=== PATIENT | female | born 1970 | race Hispanic/Latino ===

== ENCOUNTER 2022-01-21 02:08 | Emergency (ER) | payer BC ==
[2022-01-21] MEDS ORDERED: METHYLPREDNISOLONE 125 MG INJ ONE (02:39)
[2022-01-21] MEDS ORDERED: DIPHENHYDRAMINE 50 MG/ML VIAL ONE (02:39)
[2022-01-21] MEDS ORDERED: NA CHLORIDE 0.9% 500 ML ONE (02:39)
[2022-01-21 03:00] LABS: Absolute Lymphocytes (CBC) 3.1 K/uL (0.7-4.9); Hematocrit 39.4 % (36.0-45.0); Lymphocytes % 43.5 % (15.3-44.8); RBC Red Blood Cell Count 4.42 M/uL (3.86-4.86)
[2022-01-21 03:12] LABS: Potassium 3.5 mmol/L (3.5-5.1)
[2022-01-21] MEDS ORDERED: ONDANSETRON 4 MG/2 ML VIAL ONE (05:50)
--- NOTE | 2022-01-21 06:00 | ER ---
Nurse's Notes [facility] Name: Debby Ramos Age: 51 yrs Sex: Female : 1970 Arrival Date: 01/21/2022 Time: 02:09 Bed 3 Private MD: Diagnosis: Dyspnea, unspecified Presentation: 01/21 02:09 Chief complaint: Patient states: "I feel like I cannot breath, I feel like my throat is tw5 closing up. I feel like I need to throw up and I have a headache.". Coronavirus screen: Vaccine status: Patient reports being unvaccinated. Ebola Screen: Patient negative for fever greater than or equal to 101.5 degrees Fahrenheit, and additional compatible Ebola Virus Disease symptoms Patient denies exposure to infectious person. Patient denies travel to an Ebola-affected area in the 21 days before illness onset. Initial Sepsis Screen: Does the patient meet any 2 criteria? No. Patient's initial sepsis screen is negative. Does the patient have a suspected source of infection? No. Patient's initial sepsis screen is negative. Risk Assessment: Do you want to hurt yourself or someone else? Patient reports no desire to harm self or others. Onset of symptoms was January 21, 2022 at 01:00. 02:09 Method Of Arrival: EMS: [facility] tw 02:09 Acuity: KIM 2 tw5 Triage Assessment: 02:12 General: Appears uncomfortable, obese, Behavior is calm, cooperative, appropriate for tw5 age. Pain: Complains of pain in "Its mostly in my throat, I just feel uncomfortable like it is closing." Pain currently is 3 out of 10 on a pain scale. Respiratory: Reports shortness of breath at rest Onset: The symptoms/episode began/occurred just prior to arrival, the patient has mild shortness of breath. 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 - Social history:: Smoking status: Patient denies any tobacco usage or history of. - Family history:: not pertinent. - Hospitalizations: : No recent hospitalization is reported. Screenin:11 Abuse screen: Denies threats or abuse. Denies injuries from another. Nutritional as6 screening: No deficits noted. Tuberculosis screening: No symptoms or risk factors identified. Fall Risk None identified. Assessment: 02:29 Cardiovascular: Rhythm is sinus tachycardia. Respiratory: Airway is patent Trachea tw5 midline Respiratory effort is even, unlabored. EENT: Throat patient is able to handle secretions at this time. 05:46 Reassessment: Patient appears in no apparent distress at this time. Patient states as6 symptoms have improved. 06:12 Respiratory: Breath sounds are clear. as6 Vital Signs: 02:09 BP 149 / 73; Pulse 116; Resp 18; Temp 98.4; Pulse Ox 95% on R/A; Weight 117.93 kg; tw5 Height 5 ft. 2 in. (157.48 cm); Pain 3/10; 03:30 BP 130 / 86; Pulse 101; Resp 19 S; Pulse Ox 98% on R/A; as6 04:30 BP 98 / 69; Pulse 94; Resp 20 S; Pulse Ox 95% on R/A; as6 05:41 BP 107 / 84; Pulse 95; Resp 19 S; Pulse Ox 96% on R/A; as6 02:09 Body Mass Index 47.55 (117.93 kg, 157.48 cm) tw5 ED Course: 00:00 Placed in gown. Bed in low position. Call light in reach. Side rails up X2. Client as6 placed on continuous cardiac and pulse oximetry monitoring. NIBP monitoring applied. 02:09 Patient arrived in ED. tw 02:12 Triage completed. 02:12 Arm band placed on right wrist. 02:18 Marcus Colin MD is Attending Physician. rn 02:26 Brody Sánchez RN is Primary Nurse. as6 02:29 Basic Metabolic Panel Sent. 02:29 CBC with Diff Sent. 02: Troponin HS Sent. tw5 02:29 Initial lab(s) drawn, by me, sent to lab. Inserted saline lock: 18 gauge in right tw5 antecubital area, using aseptic technique. Blood collected. 02:41 XRAY Chest (1 view) In Process Unspecified. EDMS 04:17 CT Soft Tissue Neck W/contr In Process Unspecified. EDMS 06:11 No provider procedures requiring assistance completed. IV discontinued, intact, as6 bleeding controlled, No redness/swelling at site. Pressure dressing applied. Administered Medications: 02:38 Drug: NS 0.9% 500 ml Route: IV; Rate: bolus; Site: right antecubital; tw5 06:13 Follow up: Response: No adverse reaction; IV Status: Completed infusion; IV Intake: as6 500ml 02:38 Drug: Benadryl (diphenhydrAMINE) 50 mg Route: IVP; Site: right antecubital; tw5 03:57 Follow up: Response: No adverse reaction tw5 02:38 Drug: SOLU-Medrol (methylPrednisoLONE) 125 mg Route: IVP; Site: right antecubital; tw5 04:00 Follow up: Response: No adverse reaction tw5 05:46 Drug: Zofran (Ondansetron) 4 mg Route: IVP; Site: right antecubital; as6 06:10 Follow up: Response: No adverse reaction as6 Medication: 06:11 VIS not applicable for this client. as6 Intake: 06:13 IV: 500ml; Total: 500ml. as6 Outcome: 06:00 Discharge ordered by . rn 06:12 Discharged to home ambulatory, with family. as6 06:12 Condition: stable 06:12 Discharge instructions given to patient, Instructed on discharge instructions, follow up and referral plans. medication usage, Demonstrated understanding of instructions, follow-up care, medications, Prescriptions given X 2. 06:12 Patient left the ED. as6 Signatures: Dispatcher [employer] EDMS Marcus Colin MD MD rn Wood, Tiffany tw5 Brody Sánchez RN RN as6 Corrections: (The following items were deleted from the chart) 02:44 02:29 PROBNP+C.LAB.BRZ drawn and sent. tw5 EDMS
--- NOTE | 2022-01-21 06:00 | EDPHYS ---
Physician Documentation [facility] Name: Debby Ramos Age: 51 yrs Sex: Female : 1970 Arrival Date: 01/21/2022 Time: 02:09 Bed 3 Private MD: ED Physician Marcus Colin HPI: 01/21 03:05 This 51 yrs old Female presents to ER via EMS with complaints of Shortness Of rn Breath. 03:05 The patient has shortness of breath at rest. rn 03:05 Onset: The symptoms/episode began/occurred 2 hour(s) ago. Duration: The symptoms are rn continuous. The patient's shortness of breath is aggravated by nothing, is alleviated by nothing. Associated signs and symptoms: Pertinent positives: nausea, Pertinent negatives: chest pain, non-productive cough, productive cough, fever, hemoptysis, vomiting. Severity of symptoms: At their worst the symptoms were mild in the emergency department the symptoms are unchanged. The patient has experienced a previous episode. The patient has not recently seen a physician. Pt reports "feels like throat is closing", began about 1 hour prior to arrival, now 2 hours into it. Reports "lots of allergies". No new medication. No fever. Does not feel ill. Denies rash or itching. NO chest pain. NO cough. + subjective swelling of neck/throat.. 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 - Social history:: Smoking status: Patient denies any tobacco usage or history of. - Family history:: not pertinent. - Hospitalizations: : No recent hospitalization is reported. ROS: 03:05 Constitutional: Negative for fever, chills, and weight loss, Eyes: Negative for injury, rn pain, redness, and discharge, ENT: Negative for injury, pain, and discharge, Neck: + subjective swelling of throat Cardiovascular: Negative for chest pain, palpitations, and edema, Respiratory: Negative for cough, wheezing, and pleuritic chest pain, Abdomen/GI: Negative for abdominal pain, vomiting, diarrhea, and constipation, MS/Extremity: Negative for injury and deformity, Skin: Negative for injury, rash, and discoloration, Neuro: Negative for headache, weakness, numbness, tingling, and seizure. Exam: 03:05 Constitutional: This is a well developed, well nourished patient who is awake, alert, rn seems anxious Head/Face: Normocephalic, atraumatic. Eyes: Periorbital areas with no swelling, redness, or edema. ENT: dry MM, no stridor, uvula midline and not swollen, able to swallow spit Neck: Trachea midline, no thyromegaly or masses palpated, and no cervical lymphadenopathy. Supple, full range of motion without nuchal rigidity, or vertebral point tenderness. No Meningismus. Cardiovascular: Tachcyardic, regular Respiratory: No increased work of breathing, no retractions or nasal flaring. Abdomen/GI: Soft, non-tender Skin: Warm, dry MS/ Extremity: Pulses equal, no cyanosis. Neuro: Awake and alert, GCS 15 Vital Signs: 02:09 BP 149 / 73; Pulse 116; Resp 18; Temp 98.4; Pulse Ox 95% on R/A; Weight 117.93 kg; tw5 Height 5 ft. 2 in. (157.48 cm); Pain 3/10; 03:30 BP 130 / 86; Pulse 101; Resp 19 S; Pulse Ox 98% on R/A; as6 04:30 BP 98 / 69; Pulse 94; Resp 20 S; Pulse Ox 95% on R/A; as6 05:41 BP 107 / 84; Pulse 95; Resp 19 S; Pulse Ox 96% on R/A; as6 02:09 Body Mass Index 47.55 (117.93 kg, 157.48 cm) tw5 MDM: 02:18 Patient medically screened. rn 05:41 Differential diagnosis: Anxiety Reaction allergic reaction, anxiety, neck mass, adverse rn reaction. Data reviewed: vital signs, nurses notes, lab test result(s), radiologic studies, CT scan, and as a result, I will discharge patient. Counseling: I had a detailed discussion with the patient and/or guardian regarding: the historical points, exam findings, and any diagnostic results supporting the discharge/admit diagnosis, lab results, radiology results, the need for outpatient follow up, to return to the emergency department if symptoms worsen or persist or if there are any questions or concerns that arise at home. Response to treatment: the patient's symptoms have markedly improved after treatment, and as a result, I will discharge patient. Special discussion: I discussed with the patient/guardian in detail that at this point there is no indication for admission to the hospital. It is understood, however, that if the symptoms persist or worsen the patient needs to return immediately for re-evaluation. Based on the history and exam findings, there is no indication for further emergent testing or inpatient evaluation. I discussed with the patient/guardian the need to see the ENT specialist for further evaluation of the symptoms. I discussed with the patient/guardian the need to see the primary care provider for further evaluation of the symptoms. ED course: CT shows "effacement of airway at level of glottis". Radiology reports could just be during swallow phase. Discussed this with patient, who states has been told in past that has "narrow airway". Also, patient reports symptoms of throat swelling and sob have completely resolved. Reports mild nausea. Discussed findings with her, and she states feels good and would like to go home. Stable vitals. Will dc home with prn steroids for possible allergic reaction and given strict return precautions.. 01/21 02:15 Order name: Basic Metabolic Panel; Complete Time: 03:25 tw5 01/21 02:15 Order name: CBC with Diff; Complete Time: 03:25 tw01/21 02:15 Order name: Troponin HS; Complete Time: 03:25 tw5 01/21 02:15 Order name: XRAY Chest (1 view) tw01/21 02:44 Order name: NT PRO-BNP; Complete Time: 03:25 EDPA 01/21 02:15 Order name: EKG; Complete Time: 02:16 tw01/21 02:15 Order name: Cardiac monitoring; Complete Time: 02:15 tw5 01/21 02:15 Order name: EKG - Nurse/Tech; Complete Time: 02:26 tw5 01/21 03:03 Order name: CT Soft Tissue Neck W/contr rn 01/21 02:15 Order name: IV Saline Lock; Complete Time: :01/21 02:15 Order name: Labs collected and sent; Complete Time: 01/21 02:15 Order name: O2 Per Protocol; Complete Time: 02:01/21 02:15 Order name: O2 Sat Monitoring; Complete Time: : Administered Medications: 02:38 Drug: NS 0.9% 500 ml Route: IV; Rate: bolus; Site: right antecubital; tw5 06:13 Follow up: Response: No adverse reaction; IV Status: Completed infusion; IV Intake: as6 500ml 02:38 Drug: Benadryl (diphenhydrAMINE) 50 mg Route: IVP; Site: right antecubital; tw5 03:57 Follow up: Response: No adverse reaction tw5 02:38 Drug: SOLU-Medrol (methylPrednisoLONE) 125 mg Route: IVP; Site: right antecubital; tw5 04:00 Follow up: Response: No adverse reaction tw5 05:46 Drug: Zofran (Ondansetron) 4 mg Route: IVP; Site: right antecubital; as6 06:10 Follow up: Response: No adverse reaction as6 Disposition Summary: 01/21/22 06:00 Discharge Ordered Location: Home rn Problem: new rn Symptoms: have improved rn Condition: Stable rn Diagnosis - Dyspnea, unspecified rn Followup: rn - With: Private Physician - When: As needed - Reason: Recheck today's complaints, Re-evaluation by your physician Discharge Instructions: - Discharge Summary Sheet rn - Shortness of Breath, Adult rn Forms: - Medication Reconciliation Form rn - Thank You Letter rn - Antibiotic quality rn - Prescription Opioid Use rn - Work release form as6 - Family Work Release as6 Prescriptions: - Prednisone 20 mg Oral Tablet - take 3 tablets by ORAL route once daily for 5 days; 15 tablet; Refills: 0, rn Product Selection Permitted - ondansetron 4 mg Oral tablet,disintegrating - place 1 tablet by TRANSLINGUAL route every 8 hours As needed; 10 tablet; la1 Refills: 0, Product Selection Permitted Signatures: Dispatcher [employer] Marcus Marie MD MD rn Wood, Tiffany tw5 Brody Sánchez RN RN as6 Corrections: (The following items were deleted from the chart) 02:44 02:26 PROBNP+C.RADHA.MARYBETH ordered. EDMS EDMS
[2022-01-21 06:41] VITALS: TEMP 98.4
[2022-01-21 06:45] VITALS: BP 107/84; O2SAT 96
--- NOTE | 2022-01-21 13:36 | RAD REPORT ---
EXAM DESCRIPTION: RAD - Chest Single View - 01/21/2022 2:39 am CLINICAL HISTORY: 51 years, Female, CHEST PAIN COMPARISON: None. FINDINGS: Single view of the chest was obtained portable. No prior films are available for compariso n. The lung volume is slightly decreased. The cardiomediastinal silhouette demonstrate to be unremark able. The heart is not enlarged. The thoracic aorta is unremarkable. Costophrenic angles are sharp. No areas of consolidation or masses are seen. The rest of the soft tissue and bony structures demo nstrate to be unremarkable. IMPRESSION: No acute cardiopulmonary process identified. Electronically signed by: Arthur Faith MD 01/21/2022 3:07 AM CDT Due to temporary technical issues with the PACS/Fluency reporting system, reports are being signed by the in house radiologists without review as a courtesy to insure prompt reporting. The interpreting radiologist is fully responsible for the content of the report.
--- NOTE | 2022-01-21 13:40 | RAD REPORT ---
EXAM DESCRIPTION: CT - Soft Tissue Neck W/Contr - 01/21/2022 4:15 am CLINICAL HISTORY: 51 years Female Sensation of throat closing, difficulty breathing. TECHNIQUE: Axial CT imaging of the soft tissues of the neck were performed following the administrat ion of intravenous contrast. followed by sagittal and coronal reconstructed images. The CT study is p erformed according to ALARA (as low as reasonably achievable) or ALARA/IMAGE GENTLY, with automatic a djustment of mA and/or kV according to patient size. Performed on: 01/21/2022 at 3:59 AM COMPARISON: None. FINDINGS: The visualized portions of the brain and orbits are normal. The oral cavity, oropharynx and nasopharynx are normal. Some portions of the oral cavity and orophary nx are obscured by streak artifact related to the patient's dental hardware. The parapharyngeal fa t planes are preserved. The hypopharynx is unremarkable. The epiglottis and aryepiglottic folds are normal. There is effacement of the airway at the level of the glottis. This could be related to the phase of swallowing. No focal mass lesions are identified. The vallecula and pyriform sinuses are grossly normal. The preepiglottic fat is preserved. The thy roid, cricoid and arytenoid cartilages are normal. The region of the false and true vocal cords is no rmal as is the anterior commissure. The parotid and submandibular glands are grossly within normal limits. No intrinsic mass lesions are seen. . The carotid sheaths are normal bilaterally. The paranasal sinuses and mastoid air cells are clear. There are scattered shotty cervical lymph nodes bilaterally. The thyroid gland is normal in size and configuration. The thoracic inlet is normal. The superior mediastinum and lung apices are normal. No acute osseous abnormalities are identified. No focal soft tissue abnormalities are seen. IMPRESSION: 1. There is effacement of the airway at the level of the glottis. This could be relate d to the phase of swallowing. No focal mass lesions are identified. If clinical symptoms persist, con business process representative evaluation with direct visualization. 2. There are scattered shotty cervical lymph nodes bilaterally. 3. Otherwise, unremarkable CT scan of the soft tissues of the neck. Some portions of the oral cavit y and oropharynx are obscured by streak artifact related to the patient's dental hardware. Electronically signed by: Rebecca Pang DO 01/21/2022 5:31 AM CDT Due to temporary technical issues with the PACS/Fluency reporting system, reports are being signed by the in house radiologists without review as a courtesy to insure prompt reporting. The interpreting radiologist is fully responsible for the content of the report.
--- NOTE | 2022-01-21 14:17 | EKG ---
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
== END 2022-01-21 06:12 | disposition home or self-care (01) ==
LOC: ER 02:08
DX: R06.00 Dyspnea, unspecified (principal); I10 Essential (primary) hypertension; Z88.0 Allergy status to penicillin; Z88.1 Allergy status to other antibiotic agents; Z88.2 Allergy status to sulfonamides; Z88.6 Allergy status to analgesic agent; Z88.8 Allergy status to other drugs, medicaments and biological substances
CPT/HCPCS: 96361; 93005; 85025; 80048; 36415; 84484; 83880; 70491; 71045; 96375; 96374; 99284; Q9967; J1200; J7040; J2930; J2405

== ENCOUNTER 2022-02-19 13:25 | Emergency (ER) | payer BC ==
[2022-02-19 14:06] LABS: Urine Blood Negative (Negative); Urine Glucose Negative (Negative); Urine Protein Trace (Negative); Urine pH 5.5 (5.0-7.0)
[2022-02-19 14:11] LABS: Absolute Lymphocytes (CBC) 1.4 K/uL (0.7-4.9); Hematocrit 41.6 % (36.0-45.0); Lymphocytes % 27.8 % (15.3-44.8); MPV 7.7 fL (7.6-11.3); RBC Red Blood Cell Count 4.73 M/uL (3.86-4.86)
[2022-02-19 14:26] LABS: Albumin 3.6 g/dL (3.4-5.0); Bilirubin Total 0.6 mg/dL (0.2-1.0); Potassium 3.6 mmol/L (3.5-5.1); Protein, Total 8.1 g/dL (6.4-8.2)
--- NOTE | 2022-02-19 14:48 | RAD REPORT ---
EXAM DESCRIPTION: [place] Single View02/19/2022 2:35 pm CLINICAL HISTORY: Cough COMPARISON: January 2022 FINDINGS: The lungs appear clear of acute infiltrate. The heart is normal size IMPRESSION: No acute abnormalities displayed
--- NOTE | 2022-02-19 15:20 | RAD REPORT ---
EXAM DESCRIPTION: US - Abdomen Exam Limited - 02/19/2022 3:12 pm CLINICAL HISTORY: Abdominal pain. COMPARISON: None. FINDINGS: 8 millimeter gallbladder polyp. A gallstone is not seen. No gallbladder wall thickening The biliary tree is normal caliber. IMPRESSION: 8 millimeter gallbladder polyp. If a cholecystectomy is not performed then followup ultr asound in 6 months recommended
[2022-02-19] MEDS ORDERED: ONDANSETRON 4 MG/2 ML VIAL ONE (15:56)
--- NOTE | 2022-02-19 16:09 | ER ---
Nurse's Notes [facility] Name: Debby Ramos Age: 51 yrs Sex: Female : 1970 Arrival Date: 02/19/2022 Time: 13:27 Bed 8 Private MD: Raúl Ibrahim V Diagnosis: Coronavirus infection, unspecified;Weakness Presentation: 02/19 13:31 Chief complaint: Patient states: Dx with Covid on 02/10, continued weakness, decreased jl7 urination, unable to eat due to epigastric pain with food. Coronavirus screen: Vaccine status: Patient reports being unvaccinated. fatigue, fever, Client presents with at least one sign or symptom that may indicate coronavirus-19. Standard/surgical mask placed on the client. Ebola Screen: No symptoms or risks identified at this time. Initial Sepsis Screen: Does the patient meet any 2 criteria? No. Patient's initial sepsis screen is negative. Does the patient have a suspected source of infection? No. Patient's initial sepsis screen is negative. Risk Assessment: Do you want to hurt yourself or someone else? Patient reports no desire to harm self or others. Onset of symptoms was February 10, 2022. 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 - Social history:: Smoking status: Patient denies any tobacco usage or history of. Screenin:12 Abuse screen: Denies threats or abuse. Denies injuries from another. Nutritional eh3 screening: No deficits noted. Tuberculosis screening: No symptoms or risk factors identified. Fall Risk None identified. Assessment: 14:12 General: Appears in no apparent distress. comfortable, Behavior is calm, cooperative, eh3 appropriate for age. Pain: Denies pain. Neuro: Level of Consciousness is awake, alert, obeys commands, Oriented to person, place, time, situation. Neuro: Reports weakness. Cardiovascular: Cardiovascular: Capillary refill < 3 seconds Patient's skin is warm and dry. Respiratory: Airway is patent Respiratory effort is even, labored. Respiratory: Reports shortness of breath. GI: Abdomen is round non-distended. : No signs and/or symptoms were reported regarding the genitourinary system. EENT: No signs and/or symptoms were reported regarding the EENT system. Derm: No signs and/or symptoms reported regarding the dermatologic system. Musculoskeletal: No signs and/or symptoms reported regarding the musculoskeletal system. Vital Signs: 13:31 BP 148 / 78; Pulse 93; Resp 15; Temp 99; Pulse Ox 98% on R/A; Weight 113.4 kg; Height 5 jl7 ft. 1 in. (154.94 cm); Pain 0/10; 13:50 BP 139 / 78 Supine; Pulse 91; Resp 20; Pulse Ox 94% on R/A; eh3 13:52 BP 137 / 84 Sitting; Pulse 94; Resp 21; Pulse Ox 97% on R/A; eh3 13:55 BP 142 / 86 Standing; Pulse 97; Resp 24; Pulse Ox 97% on R/A; eh3 15:17 BP 141 / 83; Pulse 87; Resp 17; Pulse Ox 97% on R/A; eh3 15:54 BP 132 / 84; Pulse 84; Resp 16; Pulse Ox 96% on R/A; eh3 13:31 Body Mass Index 47.24 (113.40 kg, 154.94 cm) jl7 ED Course: 13:27 Patient arrived in ED. as 13:27 Raúl Ibrahim MD is Private Physician. as 13:28 [facility]iann Combs [facility]-C [facility]. kb 13:28 Luisito Travis DO is Attending Physician. kb 13:31 Brandy Wang is Primary Nurse. eh3 13:33 Triage completed. jl7 13:34 Arm band placed on right wrist. jl7 14:12 Patient has correct armband on for positive identification. Bed in low position. Call eh3 light in reach. Side rails up X2. Client placed on continuous cardiac and pulse oximetry monitoring. NIBP monitoring applied. Door closed. Noise minimized. Lights dimmed. 14:12 No provider procedures requiring assistance completed. Inserted saline lock: 20 gauge eh3 in right antecubital area, using aseptic technique. Blood collected. 14:37 Chest Single View XRAY In Process Unspecified. EDMS 15:14 US Abdomen Limited In Process Unspecified. EDMS 16:29 IV discontinued, intact, bleeding controlled, No redness/swelling at site. Pressure eh3 dressing applied. Administered Medications: 15:14 Drug: NS 0.9% 1000 ml Route: IV; Rate: 1000 ml; Site: right antecubital; eh3 15:54 Drug: Zofran (Ondansetron) 4 mg Route: IVP; Site: right antecubital; eh3 Medication: 16:30 VIS not applicable for this client. eh3 Outcome: 16:08 Discharge ordered by . jad 16:29 Discharged to home ambulatory. eh3 16:29 Condition: stable 16:29 Discharge instructions given to patient, Instructed on discharge instructions, follow up and referral plans. Demonstrated understanding of instructions, follow-up care. 16:30 Patient left the ED. eh3 Signatures: Dispatcher [employer] EDMS Diann Combs, MY BROWN-Vidya Weinstein Jahala, NIDIA RN jl7 Brandy Wang eh3
--- NOTE | 2022-02-19 16:10 | EDPHYS ---
Physician Documentation [facility] Name: Debby Ramos Age: 51 yrs Sex: Female : 1970 Arrival Date: 02/19/2022 Time: 13:27 Bed 8 Private MD: Raúl Ibrahim V ED Physician Luisito Travis HPI: 02/19 13:54 This 51 yrs old Female presents to ER via Ambulatory with complaints of kb Weakness. 13:54 The patient presents with generalized weakness. Onset: The symptoms/episode kb began/occurred last week. Context: occurred at home. Modifying factors: The symptoms are alleviated by nothing, the symptoms are aggravated by nothing. Associated signs and symptoms: Pertinent positives: nausea. Severity of symptoms: At their worst the symptoms were moderate in the emergency department the symptoms are unchanged. Patient's baseline: Neuro: alert and fully oriented, Motor: no deficits, Ambulation: walks without assistance, Speech: normal. The patient has not experienced similar symptoms in the past. The patient has not recently seen a physician. Pt states she was diagnosed with covid on 02/10. States she has still been running fever, no appetite since 02/15, decreased urination and feels very weak. Concerned she is dehydrated. Reports abd pain and nausea when she tries to eat. No tenderness upon exam, no pain unless she eats. 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 - Social history:: Smoking status: Patient denies any tobacco usage or history of. ROS: 13:47 Respiratory: Negative for shortness of breath, cough, wheezing, and pleuritic chest kb pain. 13:47 Constitutional: Positive for body aches, chills, fatigue, fever, malaise, poor PO intake. 13:47 Abdomen/GI: Positive for abdominal pain, nausea, anorexia. 13:47 Neuro: Positive for weakness. 13:47 All other systems are negative. Exam: 13:48 Constitutional: This is a well developed, well nourished patient who is awake, alert, kb and in no acute distress. Head/Face: Normocephalic, atraumatic. ENT: Moist Mucous membranes Cardiovascular: Regular rate and rhythm with a normal S1 and S2. No gallops, murmurs, or rubs. No pulse deficits. Respiratory: Respirations even and unlabored. No increased work of breathing. Talking in full sentences Abdomen/GI: Soft, non-tender. No distention Skin: Warm, dry with normal turgor. Normal color. MS/ Extremity: Pulses equal, no cyanosis. Neurovascular intact. Full, normal range of motion. Neuro: Awake and alert, GCS 15, oriented to person, place, time, and situation. Moves all extremities. Normal gait. Psych: Awake, alert, with orientation to person, place and time. Behavior, mood, and affect are within normal limits. Vital Signs: 13:31 BP 148 / 78; Pulse 93; Resp 15; Temp 99; Pulse Ox 98% on R/A; Weight 113.4 kg; Height 5 jl7 ft. 1 in. (154.94 cm); Pain 0/10; 13:50 BP 139 / 78 Supine; Pulse 91; Resp 20; Pulse Ox 94% on R/A; eh3 13:52 BP 137 / 84 Sitting; Pulse 94; Resp 21; Pulse Ox 97% on R/A; eh3 13:55 BP 142 / 86 Standing; Pulse 97; Resp 24; Pulse Ox 97% on R/A; eh3 15:17 BP 141 / 83; Pulse 87; Resp 17; Pulse Ox 97% on R/A; eh3 15:54 BP 132 / 84; Pulse 84; Resp 16; Pulse Ox 96% on R/A; eh3 13:31 Body Mass Index 47.24 (113.40 kg, 154.94 cm) jl7 MDM: 13:28 Patient medically screened. kb 13:46 Data reviewed: vital signs, nurses notes. Data interpreted: Pulse oximetry: on room air kb is 98 %. Interpretation: normal. 16:08 Counseling: I had a detailed discussion with the patient and/or guardian regarding: the kb historical points, exam findings, and any diagnostic results supporting the discharge/admit diagnosis, lab results, radiology results, the need for outpatient follow up, a family practitioner, to return to the emergency department if symptoms worsen or persist or if there are any questions or concerns that arise at home. 02/19 13:32 Order name: CBC with Diff; Complete Time: 14:15 kb 02/19 13:32 Order name: CMP; Complete Time: 14:33 kb 02/19 13:32 Order name: Lipase; Complete Time: 14:33 kb 02/19 14:06 Order name: Urine Dipstick-Ancillary; Complete Time: 14:09 EDMS 02/19 14:15 Order name: Chest Single View XRAY; Complete Time: 14:50 kb 02/19 14:50 Order name: US Abdomen Limited; Complete Time: 15:27 kb 02/19 13:32 Order name: IV Saline Lock; Complete Time: 14:12 kb 02/19 13:32 Order name: Labs collected and sent; Complete Time: 14:12 kb 02/19 13:32 Order name: Urine Dipstick-Ancillary (obtain specimen); Complete Time: 14:12 kb 02/19 13:32 Order name: Orthostatics; Complete Time: 14:12 kb Administered Medications: 15:14 Drug: NS 0.9% 1000 ml Route: IV; Rate: 1000 ml; Site: right antecubital; eh3 15:54 Drug: Zofran (Ondansetron) 4 mg Route: IVP; Site: right antecubital; eh3 Disposition: 18:55 Co-signature as Attending Physician, Luisito Travis DO I was immediately available on-site ms3 in the Emergency Department for consultation in the care of the patient.. Disposition Summary: 02/19/22 16:08 Discharge Ordered Location: Home kb Condition: Stable kb Diagnosis - Coronavirus infection, unspecified kb - Weakness kb Followup: kb - With: Emergency Department - When: As needed - Reason: Worsening of condition Followup: kb - With: Private Physician - When: 2 - 3 days - Reason: Recheck today's complaints, Continuance of care, Re-evaluation by your physician Discharge Instructions: - Discharge Summary Sheet kb - Viral Respiratory Infection, [id number] kb - COVID-19 kb Forms: - Medication Reconciliation Form kb - Thank You Letter kb - Antibiotic Education kb - Prescription Opioid Use kb Signatures: Dispatcher [employer] EDDiann Milton, Monica Fisher, RN RN jl7 Luisito Travis, DO DO ms3 Wang, Brandy eh3 Corrections: (The following items were deleted from the chart) 13:57 13:47 Abdomen/GI: Positive for nausea, anorexia, kb kb 13:57 13:54 Pt states she was diagnosed with covid on 02/10. States she has still been running kb fever, no appetite since 02/15, decreased urination and feels very weak. Concerned she is dehydrated. Reports abd pain and nausea when she tries to eat. . kb
[2022-02-19 16:46] VITALS: TEMP 99
[2022-02-19 17:07] VITALS: BP 132/84; O2SAT 96
== END 2022-02-19 16:30 | disposition home or self-care (01) ==
LOC: ER 13:25
DX: U07.1 COVID-19 (principal); R11.0 Nausea; R50.9 Fever, unspecified; I10 Essential (primary) hypertension; E11.9 Type 2 diabetes mellitus without complications; Z88.0 Allergy status to penicillin; Z88.1 Allergy status to other antibiotic agents; Z88.2 Allergy status to sulfonamides; Z88.8 Allergy status to other drugs, medicaments and biological substances
CPT/HCPCS: 85025; 36415; 81003; 83690; 80053; 71045; 76705; J2405

== ENCOUNTER 2022-05-15 11:27 | Emergency (ER) | payer BC ==
[2022-05-15] MEDS ORDERED: KETOROLAC 30 MG/ML INJ ONE (11:59)
[2022-05-15 12:17] LABS: Absolute Lymphocytes (CBC) 2.2 K/uL (0.7-4.9); Hematocrit 37.4 % (36.0-45.0); Lymphocytes % 33.8 % (15.3-44.8); MCV 88.8 fL (80-100); MPV 7.6 fL (7.6-11.3); RBC Red Blood Cell Count 4.21 M/uL (3.86-4.86)
--- NOTE | 2022-05-15 12:44 | RAD REPORT ---
EXAM DESCRIPTION: CT - Chest For Pe Angio - 05/15/2022 12:35 pm CLINICAL HISTORY: right sided back pain, sob COMPARISON: No comparisons TECHNIQUE: Dynamically enhanced 3 mm thick images of the chest were obtained during administration o f approximately 150mL Isovue 370 IV contrast. Coronal and oblique MIP reconstruction images were gene rated and reviewed. Exam utilizes a protocol to evaluate the pulmonary arterial tree. All CT scans are performed using dose optimization technique as appropriate and may include automated exposure control or mA/KV adjustment according to patient size. FINDINGS: No pulmonary emboli are identified. The aorta as imaged shows no acute or suspicious finding. No pericardial thickening or effusion. No infiltrate or mass in the lung parenchyma. No pleural effusion or pleural thickening. No mediastinal or hilar suspicious masses. No chest wall masses or abnormal axillary lymphadenopathy. Multilevel endplate spurring seen in the thoracic spine. No compression fracture or pathologic bone p rocess. No rib abnormality seen. CT imaging is too inherently limited to allow any accurate assessmen t of the central canal. Imaging in the upper abdomen showed normal celiac, superior mesenteric and re nal arteries. No significant upper most abdominal finding. IMPRESSION: No pulmonary emboli identified. No other significant or suspicious findings.
[2022-05-15 12:50] LABS: Potassium 3.9 mmol/L (3.5-5.1); Troponin High Sensitivity 4.1 pg/mL (<58.9)
--- NOTE | 2022-05-15 13:30 | ER ---
Nurse's Notes [facility] Name: Debby Ramos Age: 52 yrs Sex: Female : 1970 Arrival Date: 05/15/2022 Time: 11:28 Bed 13 Private MD: Raúl Ibrahim V Diagnosis: Strain of muscle and tendon of back wall of thorax Presentation: 05/15 11:42 Chief complaint: Patient states: For the last week I am having this pain in between my bm7 shoulder blades. It huts so bad when I breathe in. I have been taking tylenol and motrin but it hasnt helped. Coronavirus screen: At this time, the client does not indicate any symptoms associated with coronavirus-19. Ebola Screen: No symptoms or risks identified at this time. Initial Sepsis Screen: Does the patient meet any 2 criteria? No. Patient's initial sepsis screen is negative. Does the patient have a suspected source of infection? No. Patient's initial sepsis screen is negative. Risk Assessment: Do you want to hurt yourself or someone else? Patient reports no desire to harm self or others. 11:42 Method Of Arrival: Ambulatory 7 11:42 Acuity: KIM 3 bm7 12:05 Onset of symptoms was May 08, 2022. em6 Triage Assessment: 11:44 General: Appears in no apparent distress. uncomfortable, obese, Behavior is calm, bm7 cooperative, appropriate for age. Pain: Complains of pain in thoracic area. EENT: No deficits noted. No signs and/or symptoms were reported regarding the EENT system. Neuro: No deficits noted. Cardiovascular: No deficits noted. Respiratory: Reports pain with respiration Airway is patent Respiratory effort is even, unlabored, Respiratory pattern is regular, symmetrical, Breath sounds are clear bilaterally. Onset: The symptoms/episode began/occurred gradually, the patient has moderate shortness of breath. GI: No deficits noted. No signs and/or symptoms were reported involving the gastrointestinal system. : No deficits noted. No signs and/or symptoms were reported regarding the genitourinary system. Derm: No deficits noted. No signs and/or symptoms reported regarding the dermatologic system. Musculoskeletal: No deficits noted. No signs and/or symptoms reported regarding the musculoskeletal system. 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 - Social history:: Smoking status: Patient denies any tobacco usage or history of. Screenin:57 Abuse screen: Denies threats or abuse. Nutritional screening: No deficits noted. em6 Tuberculosis screening: No symptoms or risk factors identified. 12:05 Fall Risk IV access (20 points). Total Mohr Fall Scale indicates No Risk (0-24 pts). em6 Assessment: 11:54 General: Appears in no apparent distress. Behavior is cooperative. Pain: Complains of em6 pain in right scapular area Pain does not radiate. Pain currently is 10 out of 10 on a pain scale. Quality of pain is described as sharp, Is continuous. Neuro: Level of Consciousness is awake, alert, obeys commands, Oriented to person, place, time, situation. Cardiovascular: Reports shortness of breath, pain when she takes a deep breath Heart tones present Patient's skin is warm and dry. Rhythm is sinus rhythm. Respiratory: Airway is patent Respiratory effort is even, unlabored, Respiratory pattern is regular, symmetrical, Breath sounds are clear bilaterally. GI: : EENT: Derm: No signs and/or symptoms reported regarding the dermatologic system. Musculoskeletal: Circulation, motion, and sensation intact. Range of motion: intact in all extremities. 12:50 Reassessment: Patient appears in no apparent distress at this time. Patient and/or em6 family updated on plan of care and expected duration. Pain level reassessed. Patient is alert, oriented x 3, equal unlabored respirations, skin warm/dry/pink. 13:54 Reassessment: Patient appears in no apparent distress at this time. Patient and/or em6 family updated on plan of care and expected duration. Pain level reassessed. Patient is alert, oriented x 3, equal unlabored respirations, skin warm/dry/pink. Vital Signs: 11:40 BP 154 / 90; Pulse 75; Resp 18; Temp 97.8(TE); Pulse Ox 98% on R/A; Weight 113.4 kg bm7 (R); Height 5 ft. 2 in. (157.48 cm); Pain 10/10; 12:50 BP 139 / 74; Pulse 69; Resp 19; Pulse Ox 100% on R/A; em6 13:54 BP 133 / 62; Pulse 72; Resp 14; Pulse Ox 100% on R/A; em6 11:40 Body Mass Index 45.73 (113.40 kg, 157.48 cm) bm7 ED Course: 11:28 Patient arrived in ED. as 11:29 Raúl Ibrahim MD is Private Physician. as 11:37 [facility] 11:37 Khalida Abbasi MD is Attending Physician. [facility] 11:43 Triage completed. bm7 11:44 Arm band placed on left wrist. bm7 11:47 Breann Perez, RN is Primary Nurse. em6 12:05 Bed in low position. Call light in reach. Side rails up X2. athletic monitor on. Pulse em6 ox on. NIBP on. Warm blanket given. 12:05 Inserted saline lock: 20 gauge in right antecubital area, using aseptic technique. em6 Blood collected. 12:13 BMP Sent. em6 12:13 Troponin High Sensitivity Sent. em6 12:13 CBC with Diff Sent. em6 13:29 Raúl Ibrahim MD is Referral Physician. jmm 13:55 CT Chest For PE Angio Sent. em6 13:55 No provider procedures requiring assistance completed. IV discontinued, intact, em6 bleeding controlled, No redness/swelling at site. Pressure dressing applied. Administered Medications: 12:05 Drug: Ketorolac 30 mg Route: IVP; Site: right antecubital; em6 13:00 Follow up: Response: No adverse reaction em6 Medication: 13:56 VIS not applicable for this client. em6 Outcome: 13:30 Discharge ordered by . jmsophy 13:56 Discharged to home ambulatory. em6 13:56 Condition: stable 13:56 Discharge instructions given to patient, Instructed on discharge instructions, follow up and referral plans. medication usage, Demonstrated understanding of instructions, follow-up care, medications, Prescriptions given X 2. 13:56 Patient left the ED. em6 Signatures: Sav Newman PA PA jmm Martinez, Amelia as McCarthy, Brittany, RN RN bm7 Breann Perez RN RN em6 Corrections: (The following items were deleted from the chart) 11:43 11:40 Pulse 75bpm; Resp 18bpm; Pulse Ox 98% RA; Temp 97.8F Temporal; 113.4 kg Reported; bm7 Height 5 ft. 2 in.; BMI: 45.7; Pain 10/10; bm7 12:46 11:54 Cardiovascular: Reports shortness of breath, pain when she takes a deep breath em6 Heart tones present Patient's skin is warm and dry. em6
--- NOTE | 2022-05-15 13:30 | EDPHYS ---
Physician Documentation [facility] Name: Debby Ramos Age: 52 yrs Sex: Female : 1970 Arrival Date: 05/15/2022 Time: 11:28 Bed 13 Private MD: Raúl Ibrahim V ED Physician Khalida Abbasi HPI: 05/15 13:04 This 52 yrs old Female presents to ER via Ambulatory with complaints of jmm Shortness Of Breath - lung pain. 13:04 The patient has shortness of breath at rest. Onset: The symptoms/episode began/occurred jmm gradually, 1 week(s) ago. Duration: The symptoms are continuous, and are steadily getting worse. The patient's shortness of breath is aggravated by deep inspiration, movement. Associated signs and symptoms: Pertinent positives: sob. The patient has not experienced similar symptoms in the past. 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 - Social history:: Smoking status: Patient denies any tobacco usage or history of. ROS: 13:04 Respiratory: Positive for shortness of breath. jmm 13:04 Back: Positive for pain with movement. 13:04 All other systems are negative. Exam: 13:04 Constitutional: This is a well developed, well nourished patient who is awake, alert, jmm and in no acute distress. Head/Face: atraumatic. Eyes: EOMI, no conjunctival erythema appreciated ENT: Moist Mucus Membranes Neck: Trachea midline, Supple Chest/axilla: Normal chest wall appearance and motion. Cardiovascular: Regular rate and rhythm. No edema appreciated Respiratory: Normal respirations, no respiratory distress appreciated Abdomen/GI: Non distended 13:04 Skin: General appearance color normal MS/ Extremity: Moves all extremities, no obvious deformities appreciated, no edema noted to the lower extremities Neuro: Awake and alert Psych: Behavior is normal, Mood is normal, Patient is cooperative and pleasant 13:04 Back: pain, that is moderate, of the right scapular area and thoracic area. Vital Signs: 11:40 BP 154 / 90; Pulse 75; Resp 18; Temp 97.8(TE); Pulse Ox 98% on R/A; Weight 113.4 kg bm7 (R); Height 5 ft. 2 in. (157.48 cm); Pain 10/10; 12:50 BP 139 / 74; Pulse 69; Resp 19; Pulse Ox 100% on R/A; em6 13:54 BP 133 / 62; Pulse 72; Resp 14; Pulse Ox 100% on R/A; em6 11:40 Body Mass Index 45.73 (113.40 kg, 157.48 cm) bm7 MDM: 11:47 Patient medically screened. [facility] 13:29 Data reviewed: vital signs, nurses notes. Counseling: I had a detailed discussion with [facility] the patient and/or guardian regarding: the historical points, exam findings, and any diagnostic results supporting the discharge/admit diagnosis, lab results, radiology results, the need for outpatient follow up, to return to the emergency department if symptoms worsen or persist or if there are any questions or concerns that arise at home. 05/15 11:52 Order name: CBC with Diff [facility] 05/15 11:52 Order name: BMP [facility] 05/15 11:52 Order name: Troponin High Sensitivity [facility] 05/15 12:18 Order name: CBC with Automated Diff; Complete Time: 12:29 [facility] 05/15 12:50 Order name: Basic Metabolic Panel; Complete Time: 13:13 [facility] 05/15 12:50 Order name: Troponin High Sensitivity; Complete Time: 13:13 [facility] 05/15 11:47 Order name: Saline Lock; Complete Time: 12:13 [facility] 05/15 11:52 Order name: CT Chest For PE Angio [facility] 05/15 12:45 Order name: CT; Complete Time: 13:13 EDMS Administered Medications: 12:05 Drug: Ketorolac 30 mg Route: IVP; Site: right antecubital; em6 13:00 Follow up: Response: No adverse reaction em6 Disposition: 17:51 STAFF ATTESTATION STATEMENT: I was immediately available onsite in the emergency sd2 department for consultation in the care of this patient. I did not see or examine this patient. Khalida Abbasi MD. Disposition Summary: 05/15/22 13:30 Discharge Ordered Location: Home jm Condition: Stable jmm Diagnosis - Strain of muscle and tendon of back wall of thorax jm Followup: jmm - With: Raúl Ibrahim MD - When: 2 - 3 days - Reason: Recheck today's complaints, Continuance of care, Re-evaluation by your physician Discharge Instructions: - Discharge Summary Sheet [facility] - Thoracic Strain [facility] Forms: - Medication Reconciliation Form [facility] - Thank You Letter [facility] - Antibiotic Education [facility] - Prescription Opioid Use [facility] Prescriptions: - Diclofenac Sodium 75 mg Oral Tablet Sustained Release - take 1 tablet by ORAL route 2 times per day; 30 tablet; Refills: 0, Product [facility] Selection Permitted - orphenadrine citrate 100 mg Oral Tablet Sustained Release - take 1 tablet by ORAL route 2 times per day As needed; 20 tablet; Refills: 0, [facility] Product Selection Permitted Signatures: Dispatcher [employer] EDSav De Jesus PA PA jmm McCarthy, Brittany, RN RN 7 Khalida Abbasi MD MD sd2 Breann Perez RN RN em6
[2022-05-15 16:19] VITALS: TEMP 97.8
[2022-05-15 16:20] VITALS: O2SAT 100
[2022-05-15 16:21] VITALS: BP 133/62
== END 2022-05-15 13:56 | disposition home or self-care (01) ==
LOC: ER 11:27
DX: S29.012A Strain of muscle and tendon of back wall of thorax, initial encounter (principal); E11.9 Type 2 diabetes mellitus without complications; I10 Essential (primary) hypertension; Z88.0 Allergy status to penicillin; Z88.1 Allergy status to other antibiotic agents; Z88.2 Allergy status to sulfonamides; Z88.8 Allergy status to other drugs, medicaments and biological substances
CPT/HCPCS: 85025; 80048; 36415; 82565; 84484; 71275; 96374; 99284; Q9967

== ENCOUNTER 2022-05-31 15:46 | Emergency (ER) | payer BC ==
--- NOTE | 2022-05-31 16:29 | RAD REPORT ---
EXAM DESCRIPTION: RAD - Chest Single View - 05/31/2022 4:23 pm CLINICAL HISTORY: DYSPNEA Chest pain. COMPARISON: Chest Single View dated 02/19/2022; Chest Single View dated 01/21/2022; CHEST SINGLE VIEW da zoya 10/13/2013; CHEST SINGLE VIEW dated 08/16/2008 FINDINGS: Portable technique limits examination quality. The lungs are grossly clear. The heart is normal in size. No displaced fractures. IMPRESSION: No acute intrathoracic process suspected.
[2022-05-31] MEDS ORDERED: FAMOTIDINE 20 MG/2 ML VIAL IV ONE (17:46)
[2022-05-31] MEDS ORDERED: METHYLPREDNISOLONE 125 MG INJ ONE (17:46)
[2022-05-31] MEDS ORDERED: ONDANSETRON 4 MG/2 ML VIAL ONE (17:47)
[2022-05-31 17:54] LABS: Absolute Lymphocytes (CBC) 1.6 K/uL (0.7-4.9); Hematocrit 38.7 % (36.0-45.0); Lymphocytes % 15.7 % (15.3-44.8); MCV 89.4 fL (80-100); MPV 7.7 fL (7.6-11.3); RBC Red Blood Cell Count 4.33 M/uL (3.86-4.86)
[2022-05-31 18:13] LABS: Potassium 3.9 mmol/L (3.5-5.1)
--- NOTE | 2022-05-31 18:41 | EDPHYS ---
Physician Documentation [facility] Name: Debby Ramos Age: 52 yrs Sex: Female : 1970 Arrival Date: 05/31/2022 Time: 15:48 Bed 28 Private MD: ED Physician Khalida Abbasi HPI: 05/31 15:53 This 52 yrs old Female presents to ER via Unassigned with complaints of kb shortness of breath. 15:53 The patient has shortness of breath at rest. Onset: The symptoms/episode began/occurred kb just prior to arrival. Duration: The symptoms are continuous. The patient's shortness of breath has no apparent modifying factors. Associated signs and symptoms: Pertinent positives: dizziness, Pertinent negatives: chest pain, non-productive cough, productive cough, diaphoresis, fever, hemoptysis, loss of consciousness, nausea, numbness in extremities, visual changes, vomiting. Severity of symptoms: At their worst the symptoms were moderate in the emergency department the symptoms are unchanged. The patient has not experienced similar symptoms in the past. The patient has not recently seen a physician. Pt reports shortness of breath and dizziness that started after taking codeine. . 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 - Social history:: Smoking status: Patient denies any tobacco usage or history of. ROS: 15:52 Constitutional: Negative for fever, chills, and weight loss. kb 15:52 Respiratory: Positive for shortness of breath. 15:52 Neuro: Positive for dizziness. 15:52 All other systems are negative. Exam: 15:52 Constitutional: This is a well developed, well nourished patient who is awake, alert, kb and in no acute distress. Head/Face: Normocephalic, atraumatic. ENT: Moist Mucous membranes Cardiovascular: Regular rate and rhythm with a normal S1 and S2. No gallops, murmurs, or rubs. No pulse deficits. Respiratory: Respirations even and unlabored. No increased work of breathing. Talking in full sentences Abdomen/GI: Soft, non-tender. No distention Skin: Warm, dry with normal turgor. Normal color. MS/ Extremity: Pulses equal, no cyanosis. Neurovascular intact. Full, normal range of motion. Neuro: Awake and alert, GCS 15, oriented to person, place, time, and situation. Moves all extremities. Normal gait. 22:04 ECG was reviewed by the Attending Physician. Vital Signs: 16:39 BP 141 / 82; Pulse 84; Resp 18; Temp 98.1(O); Pulse Ox 98% on R/A; Weight 113.4 kg; vg1 Height 5 ft. 2 in. (157.48 cm); Pain 7/10; 17:15 BP 145 / 98; Pulse 102; Resp 22; Pulse Ox 99% on R/A; ld1 17:45 BP 137 / 80; Pulse 100; Resp 24; Pulse Ox 99% on R/A; ld1 19:01 BP 136 / 84; Pulse 95; Resp 22; Pulse Ox 100% on R/A; em6 16:39 Body Mass Index 45.73 (113.40 kg, 157.48 cm) vg1 MDM: 15:49 Patient medically screened. kb 15:53 Data reviewed: vital signs, nurses notes. Data interpreted: Pulse oximetry: on room air kb is 95 %. Interpretation: normal. 18:40 Counseling: I had a detailed discussion with the patient and/or guardian regarding: the kb historical points, exam findings, and any diagnostic results supporting the discharge/admit diagnosis, lab results, radiology results, the need for outpatient follow up, a family practitioner, to return to the emergency department if symptoms worsen or persist or if there are any questions or concerns that arise at home. ED course: Pt requests prescription for Toradol because that helped in the past.. 05/31 15:50 Order name: Basic Metabolic Panel; Complete Time: 18:35 kb 05/31 15:50 Order name: CBC with Diff; Complete Time: 18:35 kb 05/31 15:50 Order name: D-Dimer; Complete Time: 18:35 kb 05/31 15:50 Order name: NT PRO-BNP; Complete Time: 18:35 kb 05/31 15:50 Order name: Troponin HS; Complete Time: 18:35 kb 05/31 15:50 Order name: XRAY Chest (1 view); Complete Time: 16:33 kb 05/31 15:50 Order name: EKG; Complete Time: 15:50 kb 05/31 15:50 Order name: Cardiac monitoring; Complete Time: 17:40 kb 05/31 15:50 Order name: EKG - Nurse/Tech; Complete Time: 17:40 kb 05/31 15:50 Order name: IV Saline Lock; Complete Time: 17:40 kb 05/31 15:50 Order name: Labs collected and sent; Complete Time: 17:40 kb 05/31 15:50 Order name: O2 Per Protocol; Complete Time: 17:40 kb 05/31 15:50 Order name: O2 Sat Monitoring; Complete Time: 17:40 kb EC:04 Rate is 95 beats/min. Rhythm is regular. QRS [place] is Normal. [place] interval is normal at kb 172 msec. QRS interval is normal at 84 msec. QT interval is normal at 467 msec. Administered Medications: 17:56 Drug: Pepcid (famotidine) 20 mg Route: IVP; Site: right antecubital; em6 18:30 Follow up: Response: No adverse reaction em6 17:56 Drug: SOLU-Medrol (methylPrednisoLONE) 125 mg Route: IVP; Site: right antecubital; em6 18:30 Follow up: Response: No adverse reaction em6 17:56 Drug: Zofran (Ondansetron) 4 mg Route: IVP; Site: right antecubital; em6 18:30 Follow up: Response: No adverse reaction em6 19:00 Drug: Ketorolac 15 mg Route: IVP; Site: right antecubital; em6 19:21 Follow up: Response: No adverse reaction em6 Disposition Summary: 05/31/22 18:41 Discharge Ordered Location: Home kb Condition: Stable kb Diagnosis - Dyspnea - medication reaction kb Followup: kb - With: Emergency Department - When: As needed - Reason: Worsening of condition Followup: kb - With: Private Physician - When: 2 - 3 days - Reason: Recheck today's complaints, Continuance of care, Re-evaluation by your physician Discharge Instructions: - Discharge Summary Sheet kb - Drug Allergy, [id number] kb Forms: - Medication Reconciliation Form kb - Thank You Letter kb - Antibiotic Education kb - Prescription Opioid Use kb Prescriptions: - ketorolac 10 mg Oral tablet - take 1 tablet by ORAL route every 12 hours As needed; 10 tablet; Refills: 0, kb Product Selection Permitted Addendum: 06/03/2022 03:40 STAFF ATTESTATION STATEMENT: I was immediately available onsite in the emergency s d2 department for consultation in the care of this patient. I did not see or examine this patient. Khalida Abbasi MD. Signatures: Dispatcher [employer] EDDiann Milton, KEVIN-C KEVIN-Bozena Marin, RN RN vg1 Khalida Abbasi MD MD sd2 Breann Perez RN RN em6
--- NOTE | 2022-05-31 18:41 | ER ---
Nurse's Notes [facility] Name: Debby Ramos Age: 52 yrs Sex: Female : 1970 Arrival Date: 05/31/2022 Time: 15:48 Bed 28 Private MD: Diagnosis: Dyspnea-medication reaction Presentation: 05/31 16:39 Chief complaint: Patient states: took Tylenol #3 at 1300 then noticed SOB, chest vg1 tightness and nausea. Coronavirus screen: Vaccine status: Patient reports being unvaccinated. Client denies travel out of the [place] in the last 14 days. Ebola Screen: Patient negative for fever greater than or equal to 101.5 degrees Fahrenheit, and additional compatible Ebola Virus Disease symptoms Patient denies exposure to infectious person. Initial Sepsis Screen: Does the patient meet any 2 criteria? No. Patient's initial sepsis screen is negative. Does the patient have a suspected source of infection? No. Patient's initial sepsis screen is negative. Risk Assessment: Do you want to hurt yourself or someone else? Patient reports no desire to harm self or others. Onset of symptoms was May 31, 2022. 16:39 Method Of Arrival: Wheelchair vg1 16:39 Acuity: KIM 3 vg1 Triage Assessment: 16:42 General: Appears uncomfortable, Behavior is calm, cooperative. Pain: Complains of pain vg1 in chest and throat. Respiratory: Reports shortness of breath at rest on exertion Onset: The symptoms/episode began/occurred today, the patient has mild shortness of breath. 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 - Social history:: Smoking status: Patient denies any tobacco usage or history of. Screenin:25 Abuse screen: Denies threats or abuse. Nutritional screening: No deficits noted. em6 Tuberculosis screening: No symptoms or risk factors identified. Fall Risk IV access (20 points). Total Mohr Fall Scale indicates No Risk (0-24 pts). Assessment: 17:25 General: Appears uncomfortable, Behavior is cooperative. Pain: Denies pain. Neuro: em6 Level of Consciousness is awake, alert, obeys commands, Oriented to person, place, time, situation. Cardiovascular: Heart tones present Patient's skin is warm and dry. Rhythm is sinus rhythm. Respiratory: Reports shortness of breath Airway is patent Respiratory effort is even, unlabored, Breath sounds are clear bilaterally. GI: No signs and/or symptoms were reported involving the gastrointestinal system. : No signs and/or symptoms were reported regarding the genitourinary system. EENT: No signs and/or symptoms were reported regarding the EENT system. Derm: No signs and/or symptoms reported regarding the dermatologic system. Musculoskeletal: Circulation, motion, and sensation intact. 18:30 Reassessment: Patient and/or family updated on plan of care and expected duration. Pain em6 level reassessed. Patient is alert, oriented x 3, equal unlabored respirations, skin warm/dry/pink. Vital Signs: 16:39 BP 141 / 82; Pulse 84; Resp 18; Temp 98.1(O); Pulse Ox 98% on R/A; Weight 113.4 kg; vg1 Height 5 ft. 2 in. (157.48 cm); Pain 7/10; 17:15 BP 145 / 98; Pulse 102; Resp 22; Pulse Ox 99% on R/A; ld1 17:45 BP 137 / 80; Pulse 100; Resp 24; Pulse Ox 99% on R/A; ld1 19:01 BP 136 / 84; Pulse 95; Resp 22; Pulse Ox 100% on R/A; em6 16:39 Body Mass Index 45.73 (113.40 kg, 157.48 cm) vg1 ED Course: 15:48 Patient arrived in ED. iw 15:49 [facility] kb 15:49 Khalida Abbasi MD is Attending Physician. kb 16:25 XRAY Chest (1 view) In Process Unspecified. EDMS 16:42 Triage completed. vg1 16:42 Arm band placed on. vg1 16:56 Breann Perez, RN is Primary Nurse. em6 17:20 Placed in gown. Bed in low position. Call light in reach. Side rails up X2. Cardiac em6 monitor on. Pulse ox on. NIBP on. Warm blanket given. 17:25 Inserted saline lock: 20 gauge in right antecubital area, using aseptic technique. em6 Blood collected. 19:22 No provider procedures requiring assistance completed. IV discontinued, intact, em6 bleeding controlled, No redness/swelling at site. Pressure dressing applied. Administered Medications: 17:56 Drug: Pepcid (famotidine) 20 mg Route: IVP; Site: right antecubital; em6 18:30 Follow up: Response: No adverse reaction em6 17:56 Drug: SOLU-Medrol (methylPrednisoLONE) 125 mg Route: IVP; Site: right antecubital; em6 18:30 Follow up: Response: No adverse reaction em6 17:56 Drug: Zofran (Ondansetron) 4 mg Route: IVP; Site: right antecubital; em6 18:30 Follow up: Response: No adverse reaction em6 19:00 Drug: Ketorolac 15 mg Route: IVP; Site: right antecubital; em6 19:21 Follow up: Response: No adverse reaction em6 Medication: 19:22 VIS not applicable for this client. em6 Outcome: 18:41 Discharge ordered by . kb 19:22 Discharged to home via wheelchair. em6 19:22 Condition: stable 19:22 Discharge instructions given to patient, significant other, Instructed on discharge instructions, follow up and referral plans. medication usage, Demonstrated understanding of instructions, follow-up care, medications, Prescriptions given X 1. 19:22 Patient left the ED. em6 Signatures: Dispatcher [employer] EDMS Diann Combs, MEDICAL SCIENTIFIC OFFICER-C MEDICAL SCIENTIFIC OFFICER-CkPaulette Castrejon, RN Bozena Morris RN RN vg1 Joie Carnes RN RN ld1 Breann Perez, RN RN em6 Corrections: (The following items were deleted from the chart) 17:42 17:25 Respiratory: Airway is patent Respiratory effort is even, unlabored, Breath em6 sounds are clear bilaterally. em6 17:42 17:25 Cardiovascular: Rhythm is sinus rhythm em6 em6 18:01 18:00 BP 137 / 80; Pulse 100bpm; Resp 24bpm; Pulse Ox 99% RA; ld1 ld1 19:10 19:07 Ketorolac 15 mg IVP in right antecubital em6 em6
[2022-05-31] MEDS ORDERED: KETOROLAC 30 MG/ML INJ ONE (19:04)
[2022-05-31 19:58] VITALS: TEMP 98.1
[2022-05-31 20:01] VITALS: BP 136/84; O2SAT 100
--- NOTE | 2022-06-01 14:02 | EKG ---
Test Date: 2022-06-01 Test Time: 01:17:48 Wind Turbine Performance Engineer: JEFFRY MEASUREMENT RESULTS: Intervals: Rate: 104 MO: 164 QRSD: 74 QT: 336 QTc: 441 [place]: P: 54 MO: 164 QRS: 8 T: 2 INTERPRETIVE STATEMENTS: Sinus tachycardia Cannot rule out Anterior infarct, age undetermined Abnormal ECG Compared to ECG 01/21/2022 02:20:53 ST (T wave) deviation no longer present Possible ischemia no longer present Myocardial infarct finding still present Electronically Signed On 06-01-22 14:00:32 CDT by Arnulfo Quan
== END 2022-05-31 19:22 | disposition home or self-care (01) ==
LOC: ER 15:46
DX: R06.00 Dyspnea, unspecified (principal); T50.995A Adverse effect of other drugs, medicaments and biological substances, initial encounter; Y92.9 Unspecified place or not applicable; Z88.0 Allergy status to penicillin; Z88.8 Allergy status to other drugs, medicaments and biological substances; Z88.2 Allergy status to sulfonamides; I10 Essential (primary) hypertension; E11.9 Type 2 diabetes mellitus without complications
CPT/HCPCS: 93005; 85025; 80048; 36415; 85379; 84484; 83880; 71045; 96375; 96374; 99284; J2930; J2405

== ENCOUNTER 2022-06-01 01:06 | Emergency (ER) | payer BC ==
[2022-06-01] MEDS ORDERED: MAGNES/ALUMIN/SIMET 30ML UCUP ONE (01:26)
[2022-06-01] MEDS ORDERED: LORAZEPAM 0.5 MG TABLET ONE (01:26)
--- NOTE | 2022-06-01 01:42 | ER ---
Nurse's Notes [facility] Name: Debby Ramos Age: 52 yrs Sex: Female : 1970 Arrival Date: 06/01/2022 Time: 01:13 Bed 19 Private MD: Diagnosis: Dyspnea, unspecified Presentation: 06/01 01:18 Chief complaint: EMS states: EMT states, " c/o SOB and chest pain, she was here earlier aa9 for the same thing. she was discharged at around 7 pm. she also c/o numbness around the head. ". Ebola Screen: No symptoms or risks identified at this time. Initial Sepsis Screen: Does the patient meet any 2 criteria? No. Patient's initial sepsis screen is negative. Does the patient have a suspected source of infection? No. Patient's initial sepsis screen is negative. Risk Assessment: Do you want to hurt yourself or someone else? Patient reports no desire to harm self or others. Onset of symptoms was June 01, 2022. 01:18 Method Of Arrival: EMS: [facility] aa9 01:18 Acuity: KIM 3 aa9 01:23 Coronavirus screen: Vaccine status: Patient reports being unvaccinated. aa9 Triage Assessment: 01:20 General: Appears comfortable, obese, Behavior is calm, cooperative, appropriate for aa9 age. Pain: Complains of pain in chest Pain does not radiate. Also complains of shortness of breath. Neuro: Level of Consciousness is awake, alert, obeys commands, Oriented to person, place, time, situation, Reports numbness in head. Cardiovascular: Patient's skin is warm and dry. Respiratory: Airway is patent Respiratory effort is even, unlabored. Historical: - Allergies: 01:22 Clonidine; aa9 01:22 Levofloxacin; aa9 01:22 Nitroglycerin; aa9 01:22 PENICILLINS; aa9 01:22 Sulfa (Sulfonamide Antibiotics); aa9 - Home Meds: 01:22 Benicar 40 mg Oral tab 1 tab once daily [Active]; glimepiride 2 mg Oral tab 1 tab once aa9 daily [Active]; Norvasc 10 mg Oral tab 1 tab once daily [Active]; - PMHx: 01:22 Hypertension; diabetes mellitus; aa9 - Immunization history:: Client reports having NOT received the Covid vaccine. - Social history:: Smoking status: Patient denies any tobacco usage or history of. Screenin:21 Abuse screen: Denies threats or abuse. Denies injuries from another. Nutritional aa9 screening: No deficits noted. Tuberculosis screening: No symptoms or risk factors identified. Fall Risk None identified. Assessment: 02:04 General: Appears comfortable, obese. Pain: Complains of pain in throat. Neuro: Level of aa9 Consciousness is awake, alert, obeys commands, Oriented to person, place, time, situation. Cardiovascular: Patient's skin is warm and dry. Respiratory: Airway is patent Respiratory effort is even, unlabored. Vital Signs: 01:18 BP 131 / 77; Pulse 102; Resp 16 S; Temp 98.6(O); Pulse Ox 97% on R/A; aa9 01:30 BP 126 / 74; Pulse 104; Resp 17 S; Pulse Ox 96% on R/A; aa9 01:45 BP 134 / 74; Pulse 104; Resp 17 S; Pulse Ox 100% on R/A; aa9 ED Course: 01:13 Patient arrived in ED. kb 01:13 [facility]-C [facility] kb 01:13 Marcus Colin MD is Attending Physician. kb 01:17 Zoraida Milligan, RN is Primary Nurse. aa9 01:20 Triage completed. aa9 01:21 Arm band placed on. aa9 01:22 Patient has correct armband on for positive identification. Placed in gown. Bed in low aa9 position. Side rails up X2. Warm blanket given. 02:03 No provider procedures requiring assistance completed. Patient did not have IV access aa9 during this emergency room visit. Administered Medications: 01:38 Drug: Ativan (LORazepam) 0.5 mg Route: PO; aa9 01:38 Drug: Maalox (aluminum hydroxide, magnesium hydroxide, simethicone) Suspension (200 aa9 mg-200 mg-20 mg/5 mL) 30 ml Route: PO; Medication: 02:05 VIS not applicable for this client. aa9 Outcome: 01:41 Discharge ordered by . kb 02:05 Discharged to home via wheelchair, with family. aa9 02:05 Condition: stable 02:05 Discharge instructions given to patient, friend, Instructed on discharge instructions, follow up and referral plans. Demonstrated understanding of instructions, follow-up care. 02:05 Patient left the ED. aa9 Signatures: Diann Combs FNP-C FNP-Ckb Avalos, Aylin RN RN aa9 Corrections: (The following items were deleted from the chart) 01:23 01:18 Coronavirus screen: Vaccine status: Patient reports receiving the 2nd dose of the aa9 covid vaccine. aa9
--- NOTE | 2022-06-01 01:42 | EDPHYS ---
Physician Documentation [facility] Name: Debby Ramos Age: 52 yrs Sex: Female : 1970 Arrival Date: 06/01/2022 Time: 01:13 Bed 19 Private MD: ED Physician Marcus Colin HPI: 06/01 01:14 This 52 yrs old Female presents to ER via Unassigned with complaints of kb shortness of breath. 01:14 The patient has shortness of breath at rest. Onset: The symptoms/episode began/occurred kb just prior to arrival. Duration: The symptoms are continuous. The patient's shortness of breath has no apparent modifying factors. Associated signs and symptoms: Pertinent positives: palpitations. Severity of symptoms: At their worst the symptoms were moderate in the emergency department the symptoms are unchanged. The patient has not experienced similar symptoms in the past. The patient has not recently seen a physician. 01:38 Patient states she was lying down started feeling shortness of breath again with kb palpitations. States she felt some tingling all over her head. Patient seems very anxious during exam tremors noted to both hands during neuro exam. Patient reports she has a lot of acid in her stomach and is causing some burning upper esophagus, requests something for that. Offered a GI cocktail, to which patient said she is afraid to take lidocaine but agrees to take Maalox. Offered something for anxiety and patient agreed to a low-dose of Ativan.. Historical: - Allergies: 01:22 Clonidine; aa9 01:22 Levofloxacin; aa9 01:22 Nitroglycerin; aa9 01:22 PENICILLINS; aa9 01:22 Sulfa (Sulfonamide Antibiotics); aa9 - Home Meds: 01:22 Benicar 40 mg Oral tab 1 tab once daily [Active]; glimepiride 2 mg Oral tab 1 tab once aa9 daily [Active]; Norvasc 10 mg Oral tab 1 tab once daily [Active]; - PMHx: 01:22 Hypertension; diabetes mellitus; aa9 - Immunization history:: Client reports having NOT received the Covid vaccine. - Social history:: Smoking status: Patient denies any tobacco usage or history of. ROS: 01:14 Constitutional: Negative for fever, chills, and weight loss. kb 01:14 Cardiovascular: Positive for palpitations. 01:14 Respiratory: Positive for shortness of breath. 01:14 All other systems are negative. Exam: 01:14 Constitutional: This is a well developed, well nourished patient who is awake, alert, kb and in no acute distress. Head/Face: Normocephalic, atraumatic. ENT: Moist Mucous membranes Cardiovascular: Regular rate and rhythm with a normal S1 and S2. No gallops, murmurs, or rubs. No pulse deficits. Respiratory: Respirations even and unlabored. No increased work of breathing. Talking in full sentences Abdomen/GI: Soft, non-tender. No distention Skin: Warm, dry with normal turgor. Normal color. MS/ Extremity: Pulses equal, no cyanosis. Neurovascular intact. Full, normal range of motion. Neuro: Awake and alert, GCS 15, oriented to person, place, time, and situation. Moves all extremities. Normal gait. 01:14 Constitutional: The patient appears anxious. 01:20 ECG was reviewed by the Attending Physician. Vital Signs: 01:18 BP 131 / 77; Pulse 102; Resp 16 S; Temp 98.6(O); Pulse Ox 97% on R/A; aa9 01:30 BP 126 / 74; Pulse 104; Resp 17 S; Pulse Ox 96% on R/A; aa9 01:45 BP 134 / 74; Pulse 104; Resp 17 S; Pulse Ox 100% on R/A; aa9 MDM: 01:13 Patient medically screened. kb 01:13 Data reviewed: vital signs, nurses notes. kb 01:21 Data interpreted: Pulse oximetry: on room air is 96 %. Interpretation: normal. kb 01:40 Counseling: I had a detailed discussion with the patient and/or guardian regarding: the historical points, exam findings, and any diagnostic results supporting the discharge/admit diagnosis, lab results, radiology results, the need for outpatient follow up, a family practitioner, to return to the emergency department if symptoms worsen or persist or if there are any questions or concerns that arise at home. ED course: Patient was seen by me earlier today for similar symptoms. Cardiac work-up including D-dimer was done at that time and all within normal limits. Repeat EKG normal at this time. Discussed all findings and both visits with Dr. Colin who agrees with treatment for anxiety.. 06/01 01:13 Order name: EKG; Complete Time: 01:13 kb 06/01 01:13 Order name: EKG - Nurse/Tech; Complete Time: 01:17 kb EC:20 Rate is 104 beats/min. Rhythm is regular. QRS [place] is Normal. [place] interval is normal at kb 164 msec. QRS interval is normal at 74 msec. QT interval is normal at 441 msec. Administered Medications: 01:38 Drug: Ativan (LORazepam) 0.5 mg Route: PO; aa9 01:38 Drug: Maalox (aluminum hydroxide, magnesium hydroxide, simethicone) Suspension (200 aa9 mg-200 mg-20 mg/5 mL) 30 ml Route: PO; Disposition: 02:15 Co-signature as Attending Physician, Marcus Colin MD. rn Disposition Summary: 06/01/22 01:41 Discharge Ordered Location: Home kb Condition: Stable kb Diagnosis - Dyspnea, unspecified kb Followup: kb - With: Emergency Department - When: As needed - Reason: Worsening of condition Followup: kb - With: Private Physician - When: 2 - 3 days - Reason: Recheck today's complaints, Continuance of care, Re-evaluation by your physician Discharge Instructions: - Discharge Summary Sheet kb - Panic Attack, [id number] kb Forms: - Medication Reconciliation Form kb - Thank You Letter kb - Antibiotic Education kb - Prescription Opioid Use kb Signatures: Diann Combs, COMMODITY ANALYST-C COMMODITY ANALYST-Marcus Alcantara MD MD rn Avalos, Aylin RN RN aa9
[2022-06-01 02:10] VITALS: TEMP 98.6
[2022-06-01 02:13] VITALS: BP 134/74; O2SAT 100
--- NOTE | 2022-06-01 14:03 | EKG ---
Test Date: 2022-05-31 Test Time: 17:30:03 Toll Collector: MEASUREMENT RESULTS: Intervals: Rate: 95 VT: 172 QRSD: 84 QT: 372 QTc: 467 Diana: P: 53 VT: 172 QRS: 7 T: 31 INTERPRETIVE STATEMENTS: Normal sinus rhythm Cannot rule out Anterior infarct, age undetermined Abnormal ECG Compared to ECG 01/21/2022 02:20:53 Sinus tachycardia no longer present ST (T wave) deviation no longer present Possible ischemia no longer present Myocardial infarct finding still present Electronically Signed On 06-01-22 14:01:08 CDT by Arnulfo Quan
== END 2022-06-01 02:05 | disposition home or self-care (01) ==
LOC: ER 01:06
DX: R06.00 Dyspnea, unspecified (principal); E11.9 Type 2 diabetes mellitus without complications; I10 Essential (primary) hypertension; Z88.0 Allergy status to penicillin; Z88.1 Allergy status to other antibiotic agents; Z88.2 Allergy status to sulfonamides; Z88.3 Allergy status to other anti-infective agents; Z88.8 Allergy status to other drugs, medicaments and biological substances
CPT/HCPCS: 93005; 99283

== ENCOUNTER 2022-06-13 18:21 | Emergency (ER) | payer BC ==
[2022-06-13] MEDS ORDERED: FLUORESCEIN SODIUM 1 MG/WRAP ONE (20:15)
[2022-06-13] MEDS ORDERED: TETRACAINE HCL 0.5% 4ML OPTH ONE (20:15)
[2022-06-13] MEDS ORDERED: HYDROCODONE/APAP 10/325 TAB ONE (20:25)
[2022-06-13] MEDS ORDERED: HYDROCODONE/APAP 5/325 MG TAB ONE (20:28)
--- NOTE | 2022-06-13 21:45 | EDPHYS ---
Physician Documentation [facility] Name: Debby Ramos Age: 52 yrs Sex: Female : 1970 Arrival Date: 06/13/2022 Time: 18:23 Bed 2 Private MD: Raúl Ibrahim V ED Physician Rob Carrillo HPI: 06/13 20:20 This 52 yrs old Female presents to ER via Wheelchair with complaints of Eye den Pain, Blurred Vision. 20:20 The patient is experiencing pain, redness, tearing. Onset: The symptoms/episode den began/occurred today. Duration: the symptoms are continuous. Aggravated by nothing. Alleviated by blinking. Associated signs and symptoms: Pertinent positives: None. Patient wears glasses. Severity of symptoms: At their worst the symptoms were mild in the emergency department the symptoms are unchanged. The patient has not experienced similar symptoms in the past. Historical: - Allergies: 18:51 Clonidine; ll1 18:51 Levofloxacin; ll1 18:51 Nitroglycerin; ll1 18:51 PENICILLINS; ll1 18:51 Sulfa (Sulfonamide Antibiotics); ll1 18:51 Codeine; ll1 - PMHx: 18:51 diabetes mellitus; Hypertension; ll1 - PSHx: 18:51 cyst x 3; ll1 - Immunization history:: Client reports having NOT received the Covid vaccine. - Social history:: Smoking status: Patient denies any tobacco usage or history of. - Family history:: not pertinent. ROS: 20:20 Constitutional: Negative for fever, chills, and weight loss, ENT: Negative for injury, den pain, and discharge, Neck: Negative for injury, pain, and swelling, Cardiovascular: Negative for chest pain, palpitations, and edema, Respiratory: Negative for shortness of breath, cough, wheezing, and pleuritic chest pain, Abdomen/GI: Negative for abdominal pain, nausea, vomiting, diarrhea, and constipation, Back: Negative for injury and pain, : Negative for injury, bleeding, discharge, and swelling, MS/Extremity: Negative for injury and deformity, Skin: Negative for injury, rash, and discoloration, Neuro: Negative for headache, weakness, numbness, tingling, and seizure, Psych: Negative for depression, anxiety, suicide ideation, homicidal ideation, and hallucinations, Allergy/Immunology: Negative for hives, rash, and allergies, Endocrine: Negative for neck swelling, polydipsia, polyuria, polyphagia, and marked weight changes, Hematologic/Lymphatic: Negative for swollen nodes, abnormal bleeding, and unusual bruising. 20:20 Eyes: Positive for pain, photophobia, redness, swelling, tearing, visual disturbance, of the outer aspect of conjuctiva of right eye, iris of right eye, inner aspect of conjuctiva of right eye, outer aspect of conjuctiva of left eye, iris of left eye and inner aspect of conjunctiva of left eye. Exam: 20:20 Constitutional: This is a well developed, well nourished patient who is awake, alert, den and in no acute distress. Head/Face: Normocephalic, atraumatic. ENT: Nares patent. No nasal discharge, no septal abnormalities noted. Tympanic membranes are normal and external auditory canals are clear. Oropharynx with no redness, swelling, or masses, exudates, or evidence of obstruction, uvula midline. Mucous membranes moist. Neck: Trachea midline, no thyromegaly or masses palpated, and no cervical lymphadenopathy. Supple, full range of motion without nuchal rigidity, or vertebral point tenderness. No Meningismus. Chest/axilla: Normal chest wall appearance and motion. Nontender with no deformity. No lesions are appreciated. Cardiovascular: Regular rate and rhythm with a normal S1 and S2. No gallops, murmurs, or rubs. Normal PMI, no JVD. No pulse deficits. Respiratory: Lungs have equal breath sounds bilaterally, clear to auscultation and percussion. No rales, rhonchi or wheezes noted. No increased work of breathing, no retractions or nasal flaring. Abdomen/GI: Soft, non-tender, with normal bowel sounds. No distension or tympany. No guarding or rebound. No evidence of tenderness throughout. Back: No spinal tenderness. No costovertebral tenderness. Full range of motion. Skin: Warm, dry with normal turgor. Normal color with no rashes, no lesions, and no evidence of cellulitis. MS/ Extremity: Pulses equal, no cyanosis. Neurovascular intact. Full, normal range of motion. Neuro: Awake and alert, GCS 15, oriented to person, place, time, and situation. Cranial nerves II-XII grossly intact. Motor strength 5/5 in all extremities. Sensory grossly intact. Cerebellar exam normal. Normal gait. Psych: Awake, alert, with orientation to person, place and time. Behavior, mood, and affect are within normal limits. 20:20 Eyes: Periorbital structures: appear normal, no acute changes, Pupils: equal, round, and reactive to light and accomodation, Extraocular movements: no acute changes, Conjunctiva: injected, bilaterally. 20:20 Eyes: Corneas: no acute changes, Sclera: injected, Lids and lashes: appear normal, no acute changes, Nystagmus: is not appreciated. 21:40 Eyes: Intraocular pressure: right eye = 16mmHg, left eye = 12mmHg, each repeated den twice. Vital Signs: 18:49 BP 146 / 66; Pulse 95; Resp 18; Temp 97.9; Pulse Ox 97% ; Weight 113.4 kg; Height 5 ft. ll1 2 in. (157.48 cm); Pain 10/10; 22:00 BP 138 / 68; Pulse 86; Resp 18; Pulse Ox 97% on R/A; ll3 18:49 Body Mass Index 45.73 (113.40 kg, 157.48 cm) ll1 MDM: 20:03 Patient medically screened. den 20:25 Differential diagnosis: Corneal abrasion of Corneal ulcer of Acute iritis of Acute den glaucoma in Data reviewed: vital signs, nurses notes. Data interpreted: monitoring coordinator: rate is 95 beats/min, rhythm is regular, Pulse oximetry: on room air is 97 %. Counseling: I had a detailed discussion with the patient and/or guardian regarding: the historical points, exam findings, and any diagnostic results supporting the discharge/admit diagnosis, the need for outpatient follow up, for definitive care, an opthalmologist. 06/13 22:15 Order name: Glucose, Ancillary Testing EDMS 06/13 20:15 Order name: Eye Tray; Complete Time: 20:16 den 06/13 20:15 Order name: Fluoresene Opth strip; Complete Time: 20:16 den 06/13 20:15 Order name: Visual Acuity; Complete Time: 20:16 den 06/13 20:15 Order name: Misc. Order: tonopen; Complete Time: 20:16 den 06/13 21:45 Order name: Blood Glucose Level; Complete Time: 21:57 den Administered Medications: 20:28 Not Given (Patient Refused): [place] (HYDROcodone-acetaminophen) 10 mg-325 mg 1 tabs PO ll3 once 20:30 Drug: HYDROcodone-acetaminophen 5 mg-325 mg 1 tabs Route: PO; ll3 22:04 Follow up: Response: No adverse reaction; Pain is decreased ll3 22:03 Drug: Tetracaine Drops 0.5 % 1 drops {Note: Administered by ERP. Jw} ll3 Route: Ophthalmic; Site: both eyes; 22:18 Follow up: Response: No adverse reaction ll3 22:03 Drug: Tobramycin Ointment (0.3 %) 1 application Route: Ophthalmic; Site: both eyes; ll3 22:18 Follow up: Response: No adverse reaction ll3 Disposition Summary: 06/13/22 21:45 Discharge Ordered Location: Home den Problem: new den Symptoms: have improved den Condition: Stable den Diagnosis - Ocular pain, right eye den - Ocular pain, left eye den - Other visual disturbances - blurry vision den Followup: den - With: Magdiel Sharma MD - When: Tomorrow - Reason: Recheck today's complaints, Re-evaluation by your physician Discharge Instructions: - Discharge Summary Sheet den - Blurred Vision, Adult den - Pain Without a Known Cause den Forms: - Medication Reconciliation Form [facility] - Thank You Letter den - Antibiotic Education den - Prescription Opioid Use den Prescriptions: - Tobrex - instill 1 inch ribbon by OPHTHALMIC route 3-4 times daily; 3.5 gram; Refills: den 0, Product Selection Permitted - Tramadol 50 mg Oral Tablet - take 1 tablet by ORAL route every 8 hours as needed; 20 tablet; Refills: 0, den Product Selection Permitted Signatures: Rob Carrillo MD MD cha Lewis, Lynsay RN RN ll1 Amarilis Akhtar RN RN ll3
--- NOTE | 2022-06-13 21:45 | ER ---
Nurse's Notes [facility] Name: Debby Ramos Age: 52 yrs Sex: Female : 1970 Arrival Date: 06/13/2022 Time: 18:23 Bed 2 Private MD: Raúl Ibrahim V Diagnosis: Ocular pain, right eye;Ocular pain, left eye;Other visual disturbances-blurry vision Presentation: 06/13 18:49 Chief complaint: Patient states: Awoke with dry eyes, eye pains, and blurred vision, ll1 eyes red started today at 0730. Coronavirus screen: Vaccine status: Patient reports being unvaccinated. Client denies travel out of the [place] in the last 14 days. At this time, the client does not indicate any symptoms associated with coronavirus-19. Ebola Screen: Patient denies travel to an Ebola-affected area in the 21 days before illness onset. Mechanism of Injury: No Mechanism of Injury. The patient reports a positive loss of vision. Initial Sepsis Screen: Does the patient meet any 2 criteria? No. Patient's initial sepsis screen is negative. Does the patient have a suspected source of infection? No. Patient's initial sepsis screen is negative. Risk Assessment: Do you want to hurt yourself or someone else? Patient reports no desire to harm self or others. Onset of symptoms was June 13, 2022. 18:49 Method Of Arrival: Wheelchair ll1 18:49 Acuity: KIM 3 ll1 Triage Assessment: 18:52 General: Appears uncomfortable, Behavior is cooperative, appropriate for age. Pain: ll1 Complains of pain in eyes Pain currently is 10 out of 10 on a pain scale. Quality of pain is described as aching, throbbing. EENT: Reports blurred vision pain in right eye and left eye. Historical: - Allergies: 18:51 Clonidine; ll1 18:51 Levofloxacin; ll1 18:51 Nitroglycerin; ll1 18:51 PENICILLINS; ll1 18:51 Sulfa (Sulfonamide Antibiotics); ll1 18:51 Codeine; ll1 - PMHx: 18:51 diabetes mellitus; Hypertension; ll1 - PSHx: 18:51 cyst x 3; ll1 - Immunization history:: Client reports having NOT received the Covid vaccine. - Social history:: Smoking status: Patient denies any tobacco usage or history of. - Family history:: not pertinent. Screenin:15 Abuse screen: Denies threats or abuse. Denies injuries from another. Nutritional ll3 screening: No deficits noted. Tuberculosis screening: No symptoms or risk factors identified. Fall Risk None identified. Assessment: 21:00 General: Appears in no apparent distress. uncomfortable, Behavior is calm, cooperative. ll3 Pain: Complains of pain in left eye and right eye. Neuro: Level of Consciousness is awake, alert, obeys commands, Oriented to person, place, time, situation. EENT: Eyes are tearing on left eye and right eye Sclera/Cornea are reddened in left eye and right eye. Derm: Skin is pink, warm \T\ dry. Vital Signs: 18:49 BP 146 / 66; Pulse 95; Resp 18; Temp 97.9; Pulse Ox 97% ; Weight 113.4 kg; Height 5 ft. ll1 2 in. (157.48 cm); Pain 10/10; 22:00 BP 138 / 68; Pulse 86; Resp 18; Pulse Ox 97% on R/A; ll3 18:49 Body Mass Index 45.73 (113.40 kg, 157.48 cm) ll1 ED Course: 18:23 Patient arrived in ED. as 18:23 Raúl Ibrahim MD is Private Physician. as 18:49 Arm band placed on. ll1 18:51 Triage completed. ll1 20:03 Rob Carrillo MD is Attending Physician. den 20:24 Diya Xie, NIDIA is Primary Nurse. ke1 21:41 Magdiel Sharma MD is Referral Physician. den 22:15 Patient has correct armband on for positive identification. Bed in low position. Call ll3 light in reach. Side rails up X 1. Adult w/ patient. 22:15 No provider procedures requiring assistance completed. Patient did not have IV access ll3 during this emergency room visit. Administered Medications: 20:28 Not Given (Patient Refused): [place] (HYDROcodone-acetaminophen) 10 mg-325 mg 1 tabs PO ll3 once 20:30 Drug: HYDROcodone-acetaminophen 5 mg-325 mg 1 tabs Route: PO; ll3 22:04 Follow up: Response: No adverse reaction; Pain is decreased ll3 22:03 Drug: Tetracaine Drops 0.5 % 1 drops {Note: Administered by ERP. Jw} ll3 Route: Ophthalmic; Site: both eyes; 22:18 Follow up: Response: No adverse reaction ll3 22:03 Drug: Tobramycin Ointment (0.3 %) 1 application Route: Ophthalmic; Site: both eyes; ll3 22:18 Follow up: Response: No adverse reaction ll3 Medication: 22:16 VIS not applicable for this client. ll3 Outcome: 21:45 Discharge ordered by . den 22:15 Discharged to home ambulatory, with family. ll3 22:15 Condition: stable 22:15 Discharge instructions given to patient, family, Instructed on discharge instructions, follow up and referral plans. medication usage, Demonstrated understanding of instructions, follow-up care, medications, Prescriptions given X 2. 22:18 Patient left the ED. ll3 Signatures: Rob Carrillo MD MD cha Martinez, Amelia as Lewis, Lynsay, RN RN ll1 Amarilis Akhtar RN RN ll3 Diya Xie, NIDIA RN ke1 Corrections: (The following items were deleted from the chart) 18:52 18:49 Pulse 95bpm; Resp 18bpm; Pulse Ox 97%; Temp 97.9F; 113.4 kg; Height 5 ft. 2 in.; ll1 BMI: 45.7; Pain 10/10; ll1
[2022-06-13] MEDS ORDERED: TOBRAMYCIN SULF 0.3% OPTH OINT ONE (21:59)
[2022-06-13 22:50] VITALS: TEMP 97.9; O2SAT 97
[2022-06-13 22:51] VITALS: BP 138/68
== END 2022-06-13 22:18 | disposition home or self-care (01) ==
LOC: ER 18:21
DX: H57.13 Ocular pain, bilateral (principal); H53.8 Other visual disturbances; I10 Essential (primary) hypertension; Z88.0 Allergy status to penicillin; Z88.1 Allergy status to other antibiotic agents; Z88.2 Allergy status to sulfonamides; Z88.5 Allergy status to narcotic agent; Z88.8 Allergy status to other drugs, medicaments and biological substances
CPT/HCPCS: 82947; 99283

== ENCOUNTER 2022-07-19 16:51 | Emergency (ER) | payer BC ==
[2022-07-19 19:01] LABS: Hematocrit 38.3 % (36.0-45.0); Lymphocytes % 20.6 % (15.3-44.8); MCV 89.9 fL (80-100); MPV 7.8 fL (7.6-11.3); RBC Red Blood Cell Count 4.26 M/uL (3.86-4.86)
[2022-07-19 19:04] LABS: Protime INR 0.97
[2022-07-19 19:14] LABS: Albumin 3.6 g/dL (3.4-5.0); Bilirubin Direct 0.1 mg/dL (0-0.2); Bilirubin Total 0.4 mg/dL (0.2-1.0); Magnesium 2.2 mg/dL (1.8-2.4); Protein, Total 7.6 g/dL (6.4-8.2); Troponin High Sensitivity 6.5 pg/mL (<58.9)
[2022-07-19] MEDS ORDERED: NA CHLORIDE 0.9% 500 ML ONE (19:23)
--- NOTE | 2022-07-19 19:23 | RAD REPORT ---
EXAM DESCRIPTION: [facility] Single View07/19/2022 6:55 pm CLINICAL HISTORY: Epigastric pain COMPARISON: May 2022 FINDINGS: The lungs appear clear of acute infiltrate. The heart is normal size IMPRESSION: No acute abnormalities displayed
[2022-07-19] MEDS ORDERED: PANTOPRAZOLE 40 MG INJ ONE (19:39)
[2022-07-19] MEDS ORDERED: FAMOTIDINE 20 MG/2 ML VIAL IV ONE (19:39)
[2022-07-19 20:02] LABS: SARS-COV-2 RT PCR NEGATIVE (NEGATIVE)
--- NOTE | 2022-07-19 20:41 | RAD REPORT ---
EXAM DESCRIPTION: CT - Abdomen Pelvis W Contrast - 07/19/2022 8:25 pm CLINICAL HISTORY: Abdominal pain COMPARISON: 2015 TECHNIQUE: Computed axial tomography of the abdomen pelvis was obtained. 100 cc Isovue-300 was admin istered intravenously. Oral contrast was not requested which limits evaluation of bowel and appendix All CT scans are performed using dose optimization technique as appropriate and may include automated exposure control or mA/KV adjustment according to patient size. FINDINGS: The liver, spleen, pancreas, adrenal and kidneys appear unremarkable. There is no evidence of diverticulitis. A normal appendix No adnexal mass. Tiny umbilical hernia IMPRESSION: No acute abnormality is displayed.
--- NOTE | 2022-07-19 21:15 | ER ---
Nurse's Notes [facility] Name: Debby Ramos Age: 52 yrs Sex: Female : 1970 Arrival Date: 07/19/2022 Time: 16:52 Bed 13 Private MD: Diagnosis: Epigastric pain Presentation: 07/19 16:56 Chief complaint: EMS states: Coughed up blood tinged sputum x 1 at work today. ss Coronavirus screen: Client denies travel out of the [place] in the last 14 days. Ebola Screen: Patient denies exposure to infectious person. Patient denies travel to an Ebola-affected area in the 21 days before illness onset. Onset of symptoms was July 19, 2022. 16:56 Method Of Arrival: EMS: [facility] 17:02 Initial Sepsis Screen: Does the patient meet any 2 criteria? No. Patient's initial ss sepsis screen is negative. Does the patient have a suspected source of infection? No. Patient's initial sepsis screen is negative. Risk Assessment: Do you want to hurt yourself or someone else? Patient reports no desire to harm self or others. 17:02 Acuity: KIM 3 Triage Assessment: 17:02 General: Appears in no apparent distress. uncomfortable, Behavior is calm, cooperative, ss appropriate for age. Pain: Denies pain. Neuro: Level of Consciousness is awake, alert, obeys commands, Oriented to person, place, time, situation. Cardiovascular: Patient's skin is warm and dry. Respiratory: Airway is patent Respiratory effort is even, unlabored, Respiratory pattern is regular, symmetrical. GI: Reports indigestion. Derm: Skin is pink, warm \T\ dry. 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 - Social history:: Smoking status: Patient denies any tobacco usage or history of. Screenin:45 Abuse screen: Denies threats or abuse. Nutritional screening: No deficits noted. em6 Tuberculosis screening: No symptoms or risk factors identified. Fall Risk IV access (20 points). Total Mohr Fall Scale indicates No Risk (0-24 pts). Assessment: 18:44 General: Appears in no apparent distress. Behavior is cooperative. Pain: Denies pain. em6 Neuro: [place] Agitation-Sedation Scale (RASS): 0 - Alert and Calm. Cardiovascular: Heart tones present Patient's skin is warm and dry. Respiratory: Airway is patent Respiratory effort is even, unlabored, Respiratory pattern is regular, symmetrical, Parent/caregiver reports the patient having cough that is blood noted in sputum. GI: No signs and/or symptoms were reported involving the gastrointestinal system. : No signs and/or symptoms were reported regarding the genitourinary system. EENT: No signs and/or symptoms were reported regarding the EENT system. Derm: No signs and/or symptoms reported regarding the dermatologic system. Musculoskeletal: Circulation, motion, and sensation intact. 19:44 Reassessment: Patient appears in no apparent distress at this time. No changes from em6 previously documented assessment. Patient and/or family updated on plan of care and expected duration. Pain level reassessed. Patient is alert, oriented x 3, equal unlabored respirations, skin warm/dry/pink. 20:44 Reassessment: Patient appears in no apparent distress at this time. No changes from em6 previously documented assessment. Patient and/or family updated on plan of care and expected duration. Pain level reassessed. Patient is alert, oriented x 3, equal unlabored respirations, skin warm/dry/pink. Vital Signs: 17:02 BP 178 / 91; Pulse 109; Resp 17; Temp 98.8; Pulse Ox 98% ; Weight 114.31 kg; Height 5 ss ft. 0 in. (152.40 cm); Pain 0/10; 19:45 BP 145 / 83; Pulse 94; Resp 20; Pulse Ox 99% on R/A; em6 20:45 BP 138 / 80; Pulse 90; Resp 20; Pulse Ox 98% on R/A; em6 17:02 Body Mass Index 49.21 (114.31 kg, 152.40 cm) ED Course: 16:52 Patient arrived in ED. as 16:54 Rob Recinos PA is PHCP. cp 16:54 Thad Mcclure MD is Attending Physician. cp 17:02 Triage completed. ss 17:02 Arm band placed on right wrist. ss 18:25 Breann Perez, RN is Primary Nurse. em6 18:44 Inserted saline lock: 20 gauge in right antecubital area, using aseptic technique. em6 Blood collected. 18:45 Bed in low position. Call light in reach. Side rails up X 1. 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 Pulse em6 ox on. NIBP on. Warm blanket given. 18:57 XRAY Chest (1 view) In Process Unspecified. EDMS 20:26 CT Abd/Pelvis - IV Contrast Only In Process Unspecified. EDMS 21:14 Edwin Merritt MD is Referral Physician. cp 21:40 No provider procedures requiring assistance completed. IV discontinued, intact, em6 bleeding controlled, No redness/swelling at site. Pressure dressing applied. Administered Medications: 19:23 Drug: NS 0.9% 500 ml Route: IV; Rate: bolus; Site: right antecubital; em6 20:19 Follow up: Response: No adverse reaction; IV Status: Completed infusion; IV Intake: em6 500ml 19:42 Drug: ProTONIX (pantoprazole) 40 mg Route: IVP; Site: right antecubital; em6 20:20 Follow up: Response: No adverse reaction em6 19:42 Drug: Pepcid (famotidine) 20 mg Route: IVP; Site: right antecubital; em6 20:20 Follow up: Response: No adverse reaction em6 Medication: 21:41 VIS not applicable for this client. em6 Intake: 20:19 IV: 500ml; Total: 500ml. em6 Outcome: 21:14 Discharge ordered by . cp 21:41 Discharged to home ambulatory, with family. em6 21:41 Condition: stable 21:41 Discharge instructions given to patient, family, Instructed on discharge instructions, follow up and referral plans. medication usage, Demonstrated understanding of instructions, follow-up care, medications, Prescriptions given X 1. 21:41 Patient left the ED. em6 Signatures: Dispatcher [employer] Vidya Pride Shelby, NIDIA RN Rob Chris PA PA cp Martinez, Erika, NIDIA RN em6
--- NOTE | 2022-07-19 21:15 | EDPHYS ---
Physician Documentation [facility] Name: Debby Ramos Age: 52 yrs Sex: Female : 1970 Arrival Date: 07/19/2022 Time: 16:52 Bed 13 Private MD: ED Physician Thad Mcclure HPI: 07/19 17:15 This 52 yrs old Female presents to ER via EMS with complaints of Cough. cp 17:15 The patient or guardian reports Patient reports "spitting up bloody sputum". cp 17:15 The patient presents with epigastric pain described as "heartburn". cp 17:15 Onset: The symptoms/episode began/occurred today. The symptoms do not radiate. Patient cp denies cough, denies shortness of breath, denies chest pain. 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 - Social history:: Smoking status: Patient denies any tobacco usage or history of. ROS: 17:20 Constitutional: Negative for body aches, chills, fever, poor PO intake. cp 17:20 Eyes: Negative for injury, pain, redness, and discharge. cp 17:20 ENT: Negative for ear pain, rhinorrhea, sinus congestion, sinus pain. 17:20 Cardiovascular: Negative for chest pain, edema, palpitations. 17:20 Respiratory: Negative for cough, shortness of breath, wheezing. 17:20 Abdomen/GI: Positive for abdominal pain, of the epigastric area, Negative for vomiting, diarrhea, constipation, anorexia. 17:20 Back: Negative for pain at rest, pain with movement. 17:20 : Negative for urinary symptoms. 17:20 Neuro: Negative for altered mental status, dizziness, headache. 17:20 All other systems are negative. Exam: 17:25 Constitutional: The patient appears in no acute distress, alert, awake, comfortable, cp non-diaphoretic, non-toxic, well developed, well nourished, obese. 17:25 Head/Face: Normocephalic, atraumatic. cp 17:25 Eyes: Periorbital structures: appear normal, Conjunctiva: normal, no exudate, no injection, Sclera: no appreciated abnormality, Lids and lashes: appear normal, bilaterally. 17:25 ENT: External ear(s): are unremarkable, Nose: is normal, Mouth: Lips: moist, Oral mucosa: pink and intact, moist, Posterior pharynx: Airway: no evidence of obstruction, patent, Tonsils: no enlargement, no erythema, no exudate, erythema, is not appreciated, exudate, is not appreciated. 17:25 Neck: ROM/movement: is normal, is supple, without pain, no range of motions limitations. 17:25 Chest/axilla: Inspection: normal. 17:25 Cardiovascular: Rate: tachycardic, Rhythm: regular, Edema: is not appreciated, JVD: is not appreciated. 17:25 Respiratory: the patient does not display signs of respiratory distress, Respirations: normal, Breath sounds: are clear throughout, no decreased breath sounds, no stridor, no wheezing. 17:25 Abdomen/GI: Inspection: obese Bowel sounds: active, all quadrants, Palpation: abdomen is soft and non-tender, in all quadrants. 17:25 Back: pain, is absent, ROM is normal. 17:25 Neuro: Orientation: to person, place \\T\\ time. Mentation: is normal, Motor: moves all fours, strength is normal, Sensation: is normal. 18:40 ECG was reviewed by the Attending Physician. cp Vital Signs: 17:02 BP 178 / 91; Pulse 109; Resp 17; Temp 98.8; Pulse Ox 98% ; Weight 114.31 kg; Height 5 ss ft. 0 in. (152.40 cm); Pain 0/10; 19:45 BP 145 / 83; Pulse 94; Resp 20; Pulse Ox 99% on R/A; em6 20:45 BP 138 / 80; Pulse 90; Resp 20; Pulse Ox 98% on R/A; em6 17:02 Body Mass Index 49.21 (114.31 kg, 152.40 cm) ss MDM: 17:06 Patient medically screened. cp 18:00 Differential diagnosis: Peptic Ulcer Disease, Perf. Duodenal Ulcer, Perf. Gastric cp Ulcer, perforated gastric ulcer, active GI bleed, pneumonia. 21:13 Data reviewed: vital signs, nurses notes, lab test result(s), EKG, radiologic studies, cp CT scan, plain films. 21:13 Test interpretation: by ED physician or midlevel provider: ECG, plain radiologic cp studies. 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 Special discussion: Based on the patient's Hx, exam, and Dx evaluation, there is no indication for emergent surgery or inpatient Tx. It is understood by the patient/guardian that if the Sx's persist or worsen they need to return immediately for re-evaluation. 12 17:09 Order name: Basic Metabolic Panel; Complete Time: 19:24 cp 12/ 19:24 Interpretation: Normal except: GLUC 158. cp / 17:09 Order name: CBC with Diff; Complete Time: 19:24 cp 12 21:09 Interpretation: Reviewed. cp / 17:09 Order name: LFT's; Complete Time: 19:24 cp 12/ 19:25 Interpretation: Normal except: AST 13; GLOB 4.0; A/G 0.9. cp 12/ 17:09 Order name: Magnesium; Complete Time: 19:24 cp 12/ 17:09 Order name: NT PRO-BNP; Complete Time: 19:24 cp 12/ 17:09 Order name: PT-INR; Complete Time: 19:24 cp 12/ 17:09 Order name: Troponin HS; Complete Time: 19:24 cp 12/ 17:09 Order name: XRAY Chest (1 view); Complete Time: 19:24 cp 12/ 17:09 Order name: COVID-19/FLU A+B; Complete Time: 20:11 cp 07/19 20:11 Interpretation: Reviewed. cp 07/19 17:09 Order name: Ptt, Activated; Complete Time: 19:24 cp 07/19 17:09 Order name: Lipase; Complete Time: 19:24 cp 07/19 19:26 Order name: CT Abd/Pelvis - IV Contrast Only; Complete Time: 21:08 cp 07/19 21:09 Interpretation: Report reviewed. cp 07/19 17:09 Order name: EKG; Complete Time: 17:10 cp 07/19 17:09 Order name: Cardiac monitoring; Complete Time: 18:44 cp 07/19 17:09 Order name: EKG - Nurse/Tech; Complete Time: 18:44 cp 07/19 17:09 Order name: IV Saline Lock; Complete Time: 18:44 cp 07/19 17:09 Order name: Labs collected and sent; Complete Time: 18:44 cp 07/19 17:09 Order name: O2 Per Protocol; Complete Time: 18:44 cp 07/19 17:09 Order name: O2 Sat Monitoring; Complete Time: 18:44 cp EC:40 Rate is 103 beats/min. Rhythm is regular. ME interval is normal. QRS interval is cp normal. QT interval is normal. Interpreted by me. Reviewed by me. Administered Medications: 19:23 Drug: NS 0.9% 500 ml Route: IV; Rate: bolus; Site: right antecubital; em6 20:19 Follow up: Response: No adverse reaction; IV Status: Completed infusion; IV Intake: em6 500ml 19:42 Drug: ProTONIX (pantoprazole) 40 mg Route: IVP; Site: right antecubital; em6 20:20 Follow up: Response: No adverse reaction em6 19:42 Drug: Pepcid (famotidine) 20 mg Route: IVP; Site: right antecubital; em6 20:20 Follow up: Response: No adverse reaction em6 Disposition: 07/20 10:52 Co-signature as Attending Physician, Thad Mcclure MD I agree with the assessment and kdr plan of care. Disposition Summary: 07/19/22 21:14 Discharge Ordered Location: Home cp Problem: new cp Symptoms: have improved cp Condition: Stable cp Diagnosis - Epigastric pain cp Followup: cp - With: Edwin Merritt MD - When: 2 - 3 days - Reason: Recheck today's complaints Discharge Instructions: - Discharge Summary Sheet cp - Abdominal Pain, Adult cp - Gastroesophageal Reflux Disease, Adult cp Forms: - Medication Reconciliation Form cp - Thank You Letter cp - Antibiotic Education cp - Prescription Opioid Use cp Prescriptions: - Protonix 40 mg Oral Tablet - take 1 tablet by ORAL route once daily; 30 tablet; Refills: 0, Product cp Selection Permitted Signatures: Dispatcher [employer] Thad Ceballos MD MD [facility] Kaylin Hernandez, RN RN ss Rob Recinos PA PA cp Breann Perez, RN RN em6
[2022-07-20 00:50] VITALS: TEMP 98.8
[2022-07-20 00:55] VITALS: BP 138/80; O2SAT 98
--- NOTE | 2022-07-20 08:37 | EKG ---
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
== END 2022-07-19 21:41 | disposition home or self-care (01) ==
LOC: ER 16:51
DX: R10.13 Epigastric pain (principal); Z20.822 Contact with and (suspected) exposure to COVID-19; E11.9 Type 2 diabetes mellitus without complications; I10 Essential (primary) hypertension; Z88.0 Allergy status to penicillin; Z88.1 Allergy status to other antibiotic agents; Z88.2 Allergy status to sulfonamides; Z88.5 Allergy status to narcotic agent; Z88.8 Allergy status to other drugs, medicaments and biological substances
CPT/HCPCS: 96361; 93005; 85025; 80048; 36415; 83735; 85610; 80076; 85730; 84484; 83690; 83880; 0240U; 74177; 71045; 96375; 96374; 99284; Q9967; C9113; J7040

== ENCOUNTER 2024-06-17 12:01 | Emergency (ER) | payer BC ==
--- OUTSIDE RECORDS SUMMARY | 2024-06-17 12:07 | XMS REPORT | Continuity of Care Document ---
Author Name Unknown Address [address] [place] [address] thconnect Address [address] [place] [address] Care Team Providers Care Embalmer/Funeral Director Name Role Phone [email or web address] Attending Clinician Unavaila ble [email or web address] Admitting Clinician Unavaila ble Encounters Start Date/Time End Date/Time Encounter Type Admission Type Attending Clinicians Care Facility Care Department Encounter ID Source 2023-06-12 00:00:00 2023-06-12 00:00:00 Outpatient [email or web address] [facility] [id number] [facility]
[2024-06-17] MEDS ORDERED: KETOROLAC 30 MG/ML INJ ONE (12:45)
[2024-06-17 12:56] LABS: Absolute Eosinophils 0.1 K/uL (0-0.5); Absolute Lymphocytes (CBC) 2.1 K/uL (0.7-4.9); Absolute Monocytes 0.4 K/uL (0.1-1.3); Absolute Neutrophil 4.9 K/uL (1.8-8.0); Basophils % 0.4 % (0-1.3); Eosinophils % 1.7 % (0-4.4); Hematocrit 40.2 % (36.0-45.0); Hemoglobin 13.3 g/dL (12.0-15.0); Lymphocytes % 27.5 % (15.3-44.8); MCV 90.9 fL (80-100); MPV 8.3 fL (7.6-11.3); Monocytes % 5.3 % (3.3-12.3); Neutrophils % 65.1 % (41.7-73.7); Platelets 261 thou/uL (152-406); RBC Red Blood Cell Count 4.42 M/uL (3.86-4.86); Red Cell Distribution Width 13.4 % (12.1-15.2)
--- NOTE | 2024-06-17 13:11 | RAD REPORT ---
EXAMINATION: CT ABDOMEN AND PELVIS WITHOUT CONTRAST CLINICAL INDICATION: Female, 54 years old.ABD PAIN TECHNIQUE: CT abdomen and pelvis was performed, without IV contrast, as per department protocol. Axia l, sagittal and coronal reconstructions were obtained. One or more of the following dose reduction techniques were used: Automated exposure control, adjustment of the mA and/or kV according to the pat ient size, and/or iterative reconstruction. Unless otherwise specified, incidental findings do not require dedicated imaging follow-up. [id number]. IV CONTRAST: Not administered. COMPARISON: 07/19/2022 FINDINGS: The lack of intravenous contrast limits the sensitivity of this exam for evaluation of solid visceral organs, vascular structures, and retroperitoneum. LOWER CHEST: The visualized lung bases are clear. LIVER: Normal in size and contour. No focal lesion. GALLBLADDER/BILE DUCTS: No biliary ductal dilatation.? PANCREAS: No mass, ductal dilation, or errol-pancreatic fluid. SPLEEN: Normal size. No focal lesion. ADRENALS: Normal; no mass. KIDNEYS AND URETERS: Normal size and contour. No hydronephrosis. URINARY BLADDER: Normal contour. GASTROINTESTINAL TRACT: Stomach is non-dilated. Small bowel has normal course and caliber. No colonic wall thickening or pericolonic inflammatory changes. Normal appendix PERITONEUM: No free fluid. ABDOMINAL AORTA AND OTHER VESSELS: Normal caliber aorta and IVC. REPRODUCTIVE ORGANS: No pathologic process. MUSCULOSKELETAL: No acute or suspicious osseous abnormality. ADDITIONAL FINDINGS: None. IMPRESSION: No acute or significant abnormalities in the abdomen or pelvis, with evaluation limited by lack of IV contrast.
[2024-06-17 13:14] LABS: Albumin 3.3 g/dL (3.4-5.0); Albumin/Globulin Ratio 0.8 (1.1-1.8); Anion Gap 7.1 mEq/L (5.0-15.0); Bilirubin Total 0.8 mg/dL (0.2-1.0); Potassium 4.1 mEq/L (3.5-5.1); Protein, Total 7.3 g/dL (6.4-8.2)
[2024-06-17 14:06] LABS: Specific Gravity 1.028 (1.005-1.030); Sqamous Epithelial <5 /HPF (None Seen); Urine Bacteria <20 /HPF (<20); Urine Bilirubin NEGATIVE (Negative); Urine Blood Negative (Negative); Urine Clarity Turbid (Clear); Urine Color Light-Yellow (Yellow); Urine Culture Reflex Order NOT NEEDED; Urine Glucose 4+ (Over) (Negative); Urine Ketones NEGATIVE (Negative); Urine Microscopic Reflex YN ORDER UMIC; Urine Mucus Slight /HPF (None Seen); Urine Nitrite NEGATIVE (Negative); Urine Protein NEGATIVE (Negative); Urine RBC <5 /HPF (None Seen); Urine Urobilinogen Normal (Normal); Urine WBC <5 /HPF (<5); Urine Yeast (Budding) Trace /HPF (None Seen)
--- NOTE | 2024-06-17 14:08 | EDPHYS ---
Physician Documentation [facility] Name: Debby Ramos Age: 54 yrs Sex: Female : 1970 Arrival Date: 06/17/2024 Time: 12:01 Bed 12 Private MD: ED Physician James Rojas HPI: 06/17 13:43 This 54 yrs old Female presents to ER via Ambulatory with complaints of Right jr8 sided pain. 13:43 The patient presents with pain that is acute, with no known mechanism of injury. The jr8 symptoms are located in the low back. Onset: The symptoms/episode began/occurred acutely. The pain does not radiate. Associated signs and symptoms: The patient has no apparent associated signs or symptoms. The problem was sustained from unknown cause. Modifying factors: The patient symptoms are alleviated by nothing, the patient symptoms are aggravated by bending. Severity of symptoms: At their worst the symptoms were moderate, in the emergency department the symptoms are unchanged. It is unknown whether or not the patient has had similar symptoms in the past. The patient has not recently seen a physician. 54-year-old female patient presents emergency room with complaints of right sided back pain. History of kidney stones, diarrhea reticulitis and jejunitis. Stated that she has not had an infection in a while with that the pain feels like that. Also has a history of lumbar chronic back pain.. 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 - Infectious Disease History:: Denies. - Social history:: Smoking status: Patient denies any tobacco usage or history of. ROS: 13:43 Eyes: Negative for injury, pain, redness, and discharge, ENT: Negative for injury, jr8 pain, and discharge, Neck: Negative for injury, pain, and swelling, Cardiovascular: Negative for chest pain, palpitations, and edema, Respiratory: Negative for shortness of breath, cough, wheezing, and pleuritic chest pain, Abdomen/GI: Negative for abdominal pain, nausea, vomiting, diarrhea, and constipation, MS/Extremity: Negative for injury and deformity, Skin: Negative for injury, rash, and discoloration, Neuro: Negative for headache, weakness, numbness, tingling, and seizure, 13:43 Back: Positive for pain at rest, of the right flank and right mid back, Exam: 13:43 Constitutional: This is a well developed, well nourished patient who is awake, alert, jr8 and in no acute distress. Cardiovascular: Regular rate and rhythm with a normal S1 and S2. No gallops, murmurs, or rubs. Normal PMI, no JVD. No pulse deficits. Respiratory: Lungs have equal breath sounds bilaterally, clear to auscultation and percussion. No rales, rhonchi or wheezes noted. No increased work of breathing, no retractions or nasal flaring. Abdomen/GI: Soft, non-tender, with normal bowel sounds. No distension or tympany. No guarding or rebound. No evidence of tenderness throughout. Skin: Warm, dry with normal turgor. Normal color with no rashes, no lesions, and no evidence of cellulitis. MS/ Extremity: Pulses equal, no cyanosis. Neurovascular intact. Full, normal range of motion. Neuro: Awake and alert, GCS 15, oriented to person, place, time, and situation. Cranial nerves II-XII grossly intact. Motor strength 5/5 in all extremities. Sensory grossly intact. Cerebellar exam normal. Normal gait. 13:43 Back: pain, that is moderate, of the right mid back, ROM is normal, normal spinal alignment noted, CVA tenderness, that is mild, is noted on the right, vertebral tenderness, is not appreciated, Vital Signs: 12:16 BP 168 / 89; Pulse 103; Resp 16; Temp 97.6; Pulse Ox 95% ; Weight 117.93 kg; Height 5 iw ft. 3 in. ; Pain 10/10; 14:14 BP 141 / 88; Pulse 80; Resp 17; Pulse Ox 95% on R/A; Pain 8/10; ll1 12:16 Body Mass Index 46.06 (117.93 kg, 160.02 cm) iw 12:16 Pain Scale: Adult iw 14:14 Pain Scale: Adult ll1 MDM: 12:23 Medical Screening Exam initiated jr8 13:43 Differential diagnosis: arthritis, Pyelonephritis ruptured disc, Ureterolithiasis jr8 vertebral fracture, Diverticulitis, jejunitis. Data reviewed: vital signs, nurses notes, lab test result(s), radiologic studies, CT scan. I considered the following discharge prescriptions or medication management in the emergency department Medications were administered in the Emergency Department. See MAR. Counseling: I had a detailed discussion with the patient and/or guardian regarding the historical points, exam findings, and any diagnostic results supporting the discharge/admit diagnosis, lab results, radiology results, the need for outpatient follow up, a family practitioner, to return to the emergency department if symptoms worsen or persist or if there are any questions or concerns that arise at home. 14:06 ED course: Discussed with patient that there is no acute findings on the CT, labs jr8 stable and no sign for urinary tract infection. Most likely this is musculoskeletal in nature. Can try anti-inflammatories and muscle relaxants to see if it helps. No steroids indicated due to her diabetes with uncontrolled glucose levels. Will need to follow-up and if she would have acute change or worsening come back to emergency room. Patient understand good plan at this time.. 06/17 12:28 Order name: CBC with Diff; Complete Time: 13:08 jr8 06/17 12:28 Order name: CMP; Complete Time: 13:42 jr8 06/17 12:28 Order name: Lipase; Complete Time: 13:42 jr8 06/17 12:28 Order name: Urinalysis w/ reflexes; Complete Time: 14:06 jr8 06/17 12:28 Order name: CT Abd/Pelvis - Without Contrast; Complete Time: 13:42 jr8 06/17 12:28 Order name: IV Saline Lock; Complete Time: 12:36 jr8 06/17 12:28 Order name: Labs collected and sent; Complete Time: 12:35 jr8 Administered Medications: 12:52 Drug: Ketorolac IVP 15 mg IVP once Route: IVP; Site: right antecubital; ll1 13:55 Follow up: Response: No adverse reaction; Pain is decreased ll1 Disposition Summary: 06/17/24 14:07 Discharge Ordered Notes: Location: Home jr8 Problem: new jr8 Symptoms: have improved jr8 Condition: Stable jr8 Diagnosis - Low back pain jr8 Followup: jr8 - With: Private Physician - When: 5 - 6 days - Reason: Recheck today's complaints, Continuance of care, Re-evaluation by your physician Discharge Instructions: - Discharge Summary Sheet jr8 - Acute Back Pain, Adult jr8 - Heat Therapy jr8 Forms: - Medication Reconciliation Form jr8 - Antibiotic Education jr8 - Prescription Opioid Use jr8 - Patient Portal Instructions jr8 - Leadership Thank You Letter jr8 Prescriptions: - meloxicam 15 mg Oral tablet - take 1 tablet ORAL route daily for 7 days; 7 tablet; Refills: 0, Product jr8 Selection Permitted - orphenadrine citrate 100 mg Oral Tablet Sustained Release - take 1 tablet ORAL route 2 times per day As needed; 20 tablet; Refills: 0, jr8 Product Selection Permitted Signatures: Dispatcher [employer] Paulette Lyn, RN RN Miguelangel Rhodes PA PA jr8 Ryder Velazquez RN RN ll1
--- NOTE | 2024-06-17 14:08 | ER ---
Nurse's Notes [facility] Name: Debby Ramos Age: 54 yrs Sex: Female : 1970 Arrival Date: 06/17/2024 Time: 12:01 Bed 12 Private MD: Diagnosis: Low back pain Presentation: 06/17 12:16 Chief complaint: Patient states: right flank pain X 1 week. Coronavirus screen: At this iw time, the client does not indicate any symptoms associated with coronavirus-19. Ebola Screen: No symptoms or risks identified at this time. Initial Sepsis Screen: Does the patient meet any 2 criteria? No. Patient's initial sepsis screen is negative. Does the patient have a suspected source of infection? No. Patient's initial sepsis screen is negative. Risk Assessment: Do you want to hurt yourself or someone else?. Onset of symptoms was June 08, 2024. 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 - Infectious Disease History:: Denies. - Social history:: Smoking status: Patient denies any tobacco usage or history of. Screenin:06 [facility] ED Fall Risk Assessment (Adult) History of falling in the last 3 months, ll1 including since admission No falls in past 3 months (0 pts) Confusion or Disorientation No (0 pts) Intoxicated or Sedated No (0 pts) Impaired Gait No (0 pts) Mobility Assist Device Used No (0 pt) Altered Elimination No (0 pt) Score/Fall Risk Level 0 - 2 = Low Risk Maintained a safe environment, Hourly rounding (assess needs \T\ fall precautionary measures) done. Abuse screen: Denies threats or abuse. Nutritional screening: No deficits noted. Tuberculosis screening: No symptoms or risk factors identified. Assessment: 13:05 General: Appears uncomfortable, Behavior is calm, cooperative, appropriate for age. ll1 Pain: Complains of pain in R flank Quality of pain is described as aching, sharp. GI: Reports lower abdominal pain. : Reports pain in right flank(s). 13:56 Reassessment: No changes from previously documented assessment. Patient and/or family ll1 updated on plan of care and expected duration. Pain level reassessed. Patient is alert, oriented x 3, equal unlabored respirations, skin warm/dry/pink. 14:14 Reassessment: No changes from previously documented assessment. Patient and/or family ll1 updated on plan of care and expected duration. Pain level reassessed. Patient is alert, oriented x 3, equal unlabored respirations, skin warm/dry/pink. Vital Signs: 12:16 BP 168 / 89; Pulse 103; Resp 16; Temp 97.6; Pulse Ox 95% ; Weight 117.93 kg; Height 5 iw ft. 3 in. ; Pain 10/10; 14:14 BP 141 / 88; Pulse 80; Resp 17; Pulse Ox 95% on R/A; Pain 8/10; ll1 12:16 Body Mass Index 46.06 (117.93 kg, 160.02 cm) iw 12:16 Pain Scale: Adult iw 14:14 Pain Scale: Adult ll1 ED Course: 12:04 Patient arrived in ED. im 12:16 Miguelangel Batista PA is PHCP. jr8 12:16 James Rojas MD is Attending Physician. jr8 12:17 Triage completed. iw 12:17 Arm band placed on. iw 12:34 Ryder Velazquez, NIDIA is Primary Nurse. ll1 12:45 Initial lab(s) drawn, by mn, sent to lab. Inserted saline lock: 22 gauge in right ll1 antecubital area, using aseptic technique. Blood collected. Flushed with 10 mL NS. 13:01 CT Abd/Pelvis - Without Contrast In Process Unspecified. EDMS 13:06 Patient has correct armband on for positive identification. Bed in low position. ll1 Provided Education on: ER procedures and process. Cardiac monitoring not applicable on this patient. 13:55 Urinalysis w/ reflexes Sent. ll1 14:14 No provider procedures requiring assistance completed. IV discontinued, intact, ll1 bleeding controlled, No redness/swelling at site. Pressure dressing applied. Administered Medications: 12:52 Drug: Ketorolac IVP 15 mg IVP once Route: IVP; Site: right antecubital; 1 13:55 Follow up: Response: No adverse reaction; Pain is decreased ll1 Medication: 13:06 VIS not applicable for this client. ll1 Outcome: 14:07 Discharge ordered by . humberto 14:14 Discharged to home ambulatory, 1 14:14 Condition: stable 14:14 Discharge instructions given to patient, Instructed on discharge instructions, follow up and referral plans. medication usage, Demonstrated understanding of instructions, follow-up care, medications, Prescriptions given X 2, 14:15 Patient left the ED. 1 Signatures: Dispatcher [employer] EDPaulette Galdamez RN Miguelangel Martínez PA PA jr8 Lewis, Lynsay, RN RN 1 Agnes Holman
[2024-06-17 14:37] VITALS: TEMP 97.6; O2SAT 95
[2024-06-17 14:39] VITALS: BP 141/88
== END 2024-06-17 14:15 | disposition home or self-care (01) ==
LOC: ER 12:01
DX: M54.50 Low back pain, unspecified (principal); R10.9 Unspecified abdominal pain; E11.9 Type 2 diabetes mellitus without complications; I10 Essential (primary) hypertension; Z87.442 Personal history of urinary calculi
CPT/HCPCS: 36415; 74176; 80053; 81001; 83690; 85025; 96374; 99284